=== PATIENT | male | born 1935 ===

== ENCOUNTER 2020-07-20 23:56 | Inpatient (IN) ==
[2020-07-21] MEDS ORDERED: MAGNESIUM SULFATE 2 GM/50 ML BAG IV ONE (00:37)
--- NOTE | 2020-07-21 00:58 | Emergency Department Note ---
Lower Extremity Injury HPI General Chief Complaint: Extremity Injury, Lower Stated Complaint: right hip fracture Time Seen by Provider: 07/21/20 00:13 Source: EMS Mode of arrival: EMS Limitations: no limitations History of Present Illness HPI Narrative: Narrative: 85-year-old male initially seen at [facility] for right hip fracture. The ER doctor there, Dr. Baig, discussed the situation with orthopedist communications billing analyst Dr. Amaya who agreed to accept the patient for repair here. However the patient would have to go through the ER to the hospitalist with consult to orthopedist. Due to logistics of transport patient arrived after midnight. His pain is controlled and he is otherwise doing okay if he does not move his right hip It sounds like he was outside and fell when it happened. When he got up he could not bear weight on his right leg Related Data Allergies Allergy/AdvReac Type Severity Reaction Status Date / Time meperidine [From Demerol] Allergy Severe Chest Pain Verified 07/20/20 23:58 Review of Systems ROS ROS Narrative: Narrative: Denies any significant pain fever or recent illness. All systems ED: reviewed and negative except as stated. [facility] Narrative Patient History Narrative: Narrative: Medical/Surgical/Family History All Active Problems Hyperlipidemia (Acute) Coronary artery disease (Acute) Hypertension (Acute) Closed hip fracture (Acute) Ventricular trigeminy (Acute) Surgical History H/O heart artery stent (Acute) H/O left nephrectomy (Acute) History of left hip replacement (Acute) History of repair of rotator cuff (Acute) Family History (Updated 07/21/20 @ 01:48 by Darian Bowling MD) Father Lung cancer Social History Smoking Status: Never smoker Exam Narrative Narrative: Narrative: Thin male no acute distress resting. Normocephalic atraumatic. Conjunctive are clear sclerae white nonicteric. No nasal discharge or congestion. Oropharynx pink and moist. Neck supple.lymphadenopathy thyromegaly. Heart is regular rate and rhythm no murmur appreciated. Pectus excavatum. Lungs clear to auscultation bilaterally without wheezes rales rhonchi or respiratory distress. Abdomen soft nontender nondistended. No peritoneal signs or guarding. No pedal edema. Right foot is rotated out in clearly shorter than the left. He does have some pain at the right hip with motion-mildly tender in the hip area. General Limitations: no limitations Course Vital Signs Vital signs: Vital Signs Temperature 98.4 F 07/20/20 23:59 Pulse Rate 105 H 07/20/20 23:59 Respiratory Rate 17 07/20/20 23:59 Blood Pressure 150/97 07/20/20 23:59 Pulse Oximetry (%) 96 07/20/20 23:59 Temperature 98.4 F 07/20/20 23:59 Pulse Rate 100 H 07/21/20 00:38 Respiratory Rate 21 07/21/20 00:38 Blood Pressure 141/72 07/21/20 00:32 Pulse Oximetry (%) 93 07/21/20 00:38 MDM MDM Narrative Medical decision making narrative: Narrative: Got report from Dr. Koo, our hospitalist. He asked me to write transition orders. Also reviewed records from [facility]-laboratory does not show remarkable findings. Wrote orders after brief interview and exam of the patient Declines pain medicine. Patient will be admitted to Dr. Koo with consult to Dr. Amaya EKG shows ventricular trigeminy. Ordered mag rider 2 g. EKG Data EKG #1: EKG attestation: Yes I reviewed and interpreted this EKG. EKG results narrative: EKG shows ventricular trigeminy. Heart rate of around 100 Discharge Plan Patient/Caregiver Discharge Instructions Pt seen by [facility] only: No Clinical Impression: Ventricular trigeminy Closed hip fracture Qualifiers: Encounter type: subsequent encounter Laterality: right Fracture healing: with nonunion Qualified Code(s): S72.001K - Fracture of unspecified part of neck of right femur, subsequent encounter for closed fracture with nonunion Patient Disposition: Xfer As Inpt ([facility]) Condition: Fair Follow up with: [facility] [Primary Care Provider] -
[2020-07-21] MEDS ORDERED: morphine 2 MG/ML VIAL IV PRN (01:37)
[2020-07-21] MEDS ORDERED: NALOXONE HCL 0.4 MG/ML VIAL IV PRN ×2 (01:37→18:08)
[2020-07-21] MEDS ORDERED: ONDANSETRON 4 MG/2 ML VIAL IV PRN ×6 (01:37→18:43)
[2020-07-21] MEDS: 0.9 % SODIUM CHLORIDE 1,000 ML IV SCH ×2 (03:10→23:20)
[2020-07-21] MEDS ORDERED: BISACODYL 10 MG SUPP.RECT PR PRN ×2 (07:45→18:43)
[2020-07-21] MEDS ORDERED: guaiFENesin/CODEINE 10 ML UDC PO PRN (07:45)
[2020-07-21] MEDS ORDERED: MAGNESIUM SULFATE 2 GM/50 ML BAG IV PRN (07:45)
[2020-07-21] MEDS ORDERED: POTASSIUM CHLORIDE 20 MEQ PACKET PO PRN (07:45)
[2020-07-21] MEDS ORDERED: MELATONIN 3 MG TABLET PO PRN (07:45)
[2020-07-21] MEDS ORDERED: HYDROmorphone 0.5 MG/0.5 ML SYRINGE IV PRN (07:45)
[2020-07-21] MEDS ORDERED: ACETAMINOPHEN 650 MG/65 ML BOTTLE IV PRN (07:45)
[2020-07-21] MEDS ORDERED: ONDANSETRON 4 MG ODT TABLET SL PRN ×2 (07:45→18:43)
[2020-07-21] MEDS ORDERED: POLYETHYLENE GLYCOL 3350 17 GM PACKET PO PRN ×2 (07:45→18:43)
--- NOTE | 2020-07-21 07:47 | Internal Med History&Physical ---
HPI History of Present Illness Patient information: Note initiated : 07/21/20 at 7:44 am Service Date, if different from initiated Date: [] Patient: Bryce Gandhi 85 y/o M admitted on 07/21/20 for right hip fracture. Chief Complaint: fall History of present illness: Mr. Gandhi is a 85 year old M who presents to the ER from [facility] following a fall that resulted in right hip fracture. Dr. Mckeon was consulted and requested patient to be transferred to [facility] for further management/operative intervention. I received a phone call from Dr. Turcios about patient's status and the need for transfer to [facility]. Patient accepted and arrived in the ER. Patient is fairly stable Patient denies lightheadedness dizziness. 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 He came home and sat on the stairs, he attributes fall getting off balance while he was getting off on the stairs and turning around. He denies chest pain, palpitation, lightheadedness, thunderclap headache, unilateral weakness or incontinence. Review of patient prior medical history includes hypertension/coronary disease/hyperlipidemia with a recent hospitalization or decompensations. He is a fairly active 85-year-old gentleman Review of systems 10 point review system was performed and is negative except for ones discussed above PFSH PFSH All Active Problems Hyperlipidemia (Acute) Coronary artery disease (Acute) Hypertension (Acute) Closed hip fracture (Acute) Ventricular trigeminy (Acute) Surgical History H/O heart artery stent (Acute) H/O left nephrectomy (Acute) History of left hip replacement (Acute) History of repair of rotator cuff (Acute) Family History (Updated 07/21/20 @ 01:48 by Darian Bowling MD) Father Lung cancer Social History smoking status: Never smoker MEDS/ALLERGIES Home Medications and Allergies Home Medications Medication Instructions Recorded Confirmed Type aspirin [Aspirin Low Dose] 81 mg PO DAILY 07/21/20 07/21/20 History carvedilol 3.125 mg PO BID 07/21/20 07/21/20 History cholecalciferol (vitamin D3) 25 mcg PO QDAY 07/21/20 07/21/20 History nitroglycerin 0.4 mg SUBLINGUAL Q5MIN 07/21/20 07/21/20 History simvastatin [Zocor] 40 mg PO QHS 07/21/20 07/21/20 History Allergies Allergy/AdvReac Type Severity Reaction Status Date / Time Hydralazine Allergy Unknown Unknown Verified 07/21/20 06:45 meperidine [From Demerol] AdvReac Severe Chest Pain Verified 07/21/20 06:45 EXAM Constitutional Vitals: Temp Pulse Resp BP Pulse Ox 98.0 F 97 H 16 139/75 97 07/21/20 07:08 07/21/20 07:08 07/21/20 07:08 07/21/20 07:08 07/21/20 07:08 Head normocephalic Oral cavity moist No ear nose discharge Eye movement symmetrical Neck supple no lymphadenopathy S1-S2 regular, ESM grade 1 Nonlabored breathing Nondistended nontender abdomen Right lower extremity externally rotated and shortened, pain on passive movement at hip. , No lymphedema joint swelling Skin no suspicious lesion Psych anxious but alert cooperative Neuro normal higher function DATA Data Completed and Pending Labs: Labs from last 24 hours 07/21/20 03:55 SARS-CoV-2 (PCR) Covid-19 negative A/P Narrative A/P Narrative: * Right hip fracture-orthopedic consulted. Patient will be undergoing operative intervention in a.m. Keep n.p.o./pain medication/crystalloids * Postop pain management on opioids * History of hypertension restart Coreg * History of CAD/hyperlipidemia continue statin/aspirin * Full code * Prophylaxis will be as per orthopedics Plan * Inpatient admission * Keep n.p.o. * Restart pre-existing home medications * Pain management * Directed therapies Time Spent With Patient Time: Total time spent is greater than 50% in coordination of care (as documented) at patient's floor/unit and/or counseling patient: QUALITY Stroke Symptom Onset Unknown: No VTE Deep Vein Thrombosis/Pulmonary Embolism Present on Admission: No
[2020-07-21] MEDS ORDERED: NITROGLYCERIN 0.4 MG TAB.SUBL SL SCH (08:00)
[2020-07-21] MEDS: CARVEDILOL 3.125 MG TABLET PO SCH (08:26)
[2020-07-21 08:44] LABS: Basophils # (Auto) 0.03 K/mcL (0.00-0.30); Basophils % (Auto) 0.3 % (0.0-2.0); Eosinophils # (Auto) 0.17 K/mcL (0.00-0.70); Eosinophils % (Auto) 1.9 % (0.0-7.0); Hematocrit 40.1 % (40.1-51.0); Hemoglobin 13.4 g/dL (13.7-17.5); Lymphocytes # (Auto) 0.84 K/mcL (1.50-4.80); Lymphocytes % (Auto) 9.2 % (15.5-49.0); Mean Cell Volume 96.6 fL (80.0-100.0); Mean Corpuscular HGB Conc 33.4 g/dL (31.0-36.0); Mean Platelet Volume 8.8 fL (7.4-10.4); Monocytes # (Auto) 0.69 K/mcL (0.10-0.90); Monocytes % (Auto) 7.6 % (1.0-12.0); Platelet Count 199 K/mcL (140-440); RBC 4.15 M/mcL (4.63-6.08); Red Cell Distribution Width 13.1 % (11.5-14.5); WBC 9.1 K/mcL (4.50-11.00)
[2020-07-21] MEDS ORDERED: ASPIRIN 81 MG TAB.CHEW PO SCH (09:00)
[2020-07-21 09:08] LABS: ALT/SGPT 11 U/l (0-40); AST/SGOT 14 U/l (0-37); Albumin 3.5 gm/dL (3.2-5.2); Albumin/Globulin Ratio 1.4 (1.0-2.3); Alkaline Phosphatase 102 U/L (39-117); Bilirubin,Direct < 0.2 mg/dL (0.0-0.3); Bilirubin,Total 0.5 mg/dL (0.0-1.0); Blood Urea Nitrogen 17 mg/dl (8-23); Calcium 8.7 mg/dl (8.6-10.4); Carbon Dioxide 22 mmol/L (22-30); Chloride 101 mmol/L (96-108); Globulin 2.5 gm/dL (2.2-3.7); Glomerular Filtration Rate 69; Glucose 100 mg/dL (70-105); Lactate Dehydrogenase 175 U/L (94-250); Phosphorous 2.6 mg/dL (2.7-4.5); Triglycerides 63 mg/dl (<150); Uric Acid 5.3 mg/dL (2.5-8.0)
[2020-07-21] MEDS ORDERED: ceFAZolin 2 GM in DEXTROSE 5% IN WATER 50 ML IV SCH (11:30)
--- NOTE | 2020-07-21 12:07 | Consultation ---
DATE OF CONSULTATION: 07/21/2020 DATE OF INJURY: 07/20/2020 HISTORY OF PRESENT ILLNESS: A very pleasant elderly male who had a same level fall, had immediate pain and swelling in his right hip. He was seen in the Emergency Room in [place] and diagnosed with femoral neck fracture. He was transferred to [facility] Emergency Room where he was admitted to the hospital. The patient has been fairly healthy, takes no regular medication. He has been independently living and able to chop wood. PAST MEDICAL HISTORY: Healthy. No chest pain, no shortness of breath, no loss of consciousness. SOCIAL HISTORY: He does not smoke or drink alcohol. MEDICATIONS: No regular medications. ALLERGIES: None. PHYSICAL EXAMINATION: GENERAL: Very pleasant elderly male who is alert and oriented x3. Mood and affect are appropriate. He is 85 years of age. LUNGS: Clear to auscultation bilaterally. CARDIOVASCULAR: Regular rate and rhythm. No murmurs, rubs or gallops. EXTREMITIES: His right leg is shortened and externally rotated, but he is able to move the foot up and down without pain. He has normal light touch sensation of the dorsal and plantar surface with normal dorsal and pedal pulses. The hip is externally rotated and shortened. IMPRESSION: Right hip femoral neck fracture. PLAN: Treatment will be a cemented hemiarthroplasty on the right side. Patient understands the risks and benefits and agrees to proceed. He has had a prior hemiarthroplasty in the past. [facility]:sharyn Job ID: [id number] Doc ID: [id number] Vikas Amaya MD
[2020-07-21 12:26] LABS: Appearance,Urine CLEAR; Bacteria,Urine FEW /hpf (0); Bilirubin,Urine NEG (NEG); Color,Urine YELLOW; Culture Indicated,Urine YES; Glucose,Urine (UA) NEGATIVE (NEG); Ketones,Urine 5/TR mg/dL (NEG); Leukocyte Esterase,Urine 25 /uL (NEG); Mucus,Urine FEW /hpf (0); Nitrate,Urine NEG (NEG); Protein,Urine NEG (NEG); Specific Gravity,Urine 1.013 (1.000-1.035); Urine Blood 0.2 mg/dL (<0.03); Urine RBC 26 /hpf (0-1); Urine Squamous Epithelial Cell 0 /hpf (0-4); Urine WBC 7 /hpf (0-4); Urobilinogen,Urine NEG (NEG)
[2020-07-21] MEDS: MULTIVIT,THER IRON,CA,FA & MIN 1 TABLET PO SCH (15:23)
[2020-07-21] MEDS: DOCUSATE SODIUM 100 MG CAPSULE PO SCH ×2 (15:23→23:19)
[2020-07-21] MEDS: 0.9 % SODIUM CHLORIDE 10 ML SYRINGE IV SCH ×3 (15:25→23:20)
[2020-07-21] MEDS ORDERED: ONDANSETRON 4 MG/2 ML VIAL ONE (17:30)
[2020-07-21] MEDS ORDERED: DEXAMETHASONE 10 MG/ML VIAL ONE (17:30)
[2020-07-21] MEDS ORDERED: SUCCINYLCHOLINE 20 MG/ML ML IV ONE (17:30)
[2020-07-21] MEDS ORDERED: PROPOFOL 200 MG/20 ML VIAL IV ONE (17:30)
[2020-07-21] MEDS ORDERED: PHENYLEPHRINE 10 MG/ML VIAL ONE (17:30)
[2020-07-21] MEDS ORDERED: LIDOCAINE HCL/PF 100 MG/5 ML SYRINGE IV ONE (17:30)
[2020-07-21] MEDS ORDERED: 0.9 % SODIUM CHLORIDE 1,000 ML BAG IV ONE (17:30)
[2020-07-21] MEDS ORDERED: KETAMINE 100 MG/ML ML ONE (17:30)
[2020-07-21] MEDS ORDERED: fentaNYL 100 MCG/2 ML VIAL IV ONE (17:30)
[2020-07-21] MEDS ORDERED: IPRATROPIUM/ALBUTEROL 3 ML AMPUL.NEB NEB PRN (18:08)
[2020-07-21] MEDS ORDERED: METOPROLOL TARTRATE 5 MG/5 ML VIAL IV PRN (18:08)
[2020-07-21] MEDS ORDERED: diphenhydrAMINE 50 MG/ML VIAL IV PRN (18:08)
[2020-07-21] MEDS ORDERED: ACETAMINOPHEN 1,000 MG/100 ML BOTTLE IV ONE (18:08)
[2020-07-21] MEDS ORDERED: ATROPINE SULFATE 0.4 MG/ML VIAL IV PRN (18:08)
[2020-07-21] MEDS ORDERED: fentaNYL 100 MCG/2 ML VIAL IV PRN (18:08)
[2020-07-21] MEDS ORDERED: ePHEDrine 50 MG/ML AMPUL IV PRN (18:08)
[2020-07-21] MEDS ORDERED: METHOCARBAMOL 1,000 MG/10 ML VIAL IV PRN (18:08)
[2020-07-21] MEDS ORDERED: LACTATED RINGERS 1,000 ML IV SCH (18:15)
[2020-07-21] MEDS ORDERED: GENTAMICIN SULFATE 800 MG/20 ML VIAL IR ONE (18:25)
--- NOTE | 2020-07-21 18:40 | Brief Operative Note ---
Brief Operative Note Date of procedure: 07/21/20 Pre-op diagnosis: Right hip femoral neck fracature Post-op diagnosis: same Procedure: Right hip cemented leslie arthroplasty Grafts/Implants: Yes Anesthesia: GETA Complications: none Surgeon: Vikas Amaya Videotape Operator: Victor M Williamson Estimated blood loss (cc): 20 Tourniquet Time (Minutes): 0 Specimens Removed/Pathology: none sent Condition: stable Disposition: PACU
[2020-07-21] MEDS ORDERED: BENZOCAINE/MENTHOL 1 LOZENGE PO PRN (18:43)
[2020-07-21] MEDS ORDERED: TRANEXAMIC ACID 1,000 MG/10 ML VIAL IV ONE ×2 (18:43→19:36)
[2020-07-21] MEDS ORDERED: HYDROmorphone 1 MG/ML SYRINGE IV PRN (18:43)
[2020-07-21] MEDS ORDERED: MAGNESIUM HYDROXIDE 30 ML ORAL.SUSP PO PRN (18:43)
[2020-07-21] MEDS ORDERED: ACETAMINOPHEN 325 MG TABLET PO PRN (18:43)
[2020-07-21] MEDS ORDERED: HYDROCODONE/APAP 7.5/325MG TABLET PO PRN (18:43)
[2020-07-21] MEDS ORDERED: FLEETS ADULT ENEMA PR PRN (18:43)
[2020-07-21] MEDS ORDERED: TEMAZEPAM 15 MG CAPSULE PO PRN (18:43)
[2020-07-21] MEDS ORDERED: ASPIRIN 325 MG ENTERIC COATED TABLET PO SCH (21:00)
[2020-07-21] MEDS ORDERED: DOCUSATE SODIUM 100 MG CAPSULE PO SCH (21:00)
[2020-07-21] MEDS: LACTATED RINGERS 1,000 ML IV SCH (21:00)
[2020-07-21] MEDS: ASPIRIN 81 MG TAB.CHEW PO SCH (23:17)
[2020-07-21] MEDS: SIMVASTATIN 40 MG TABLET PO SCH (23:17)
[2020-07-21] MEDS: SENNOSIDES 1 TABLET PO SCH (23:19)
[2020-07-21] MEDS: SENNOSIDES/DOCUSATE SODIUM 1 TAB TABLET PO SCH (23:19)
[2020-07-22] MEDS: CARVEDILOL 3.125 MG TABLET PO SCH ×3 (01:21→17:54)
[2020-07-22] MEDS: ceFAZolin 1 GM VIAL IV SCH ×2 (02:53→11:22)
[2020-07-22] MEDS: LACTATED RINGERS 1,000 ML IV SCH ×2 (02:54→22:22)
[2020-07-22] MEDS: 0.9 % SODIUM CHLORIDE 10 ML SYRINGE IV SCH ×6 (04:20→22:21)
[2020-07-22] MEDS: ASPIRIN 81 MG TAB.CHEW PO SCH ×2 (08:11→20:46)
[2020-07-22] MEDS: DOCUSATE SODIUM 100 MG CAPSULE PO SCH ×2 (08:12→22:19)
[2020-07-22] MEDS: MULTIVIT,THER IRON,CA,FA & MIN 1 TABLET PO SCH (08:12)
[2020-07-22 08:57] LABS: Hematocrit 36.6 % (40.1-51.0); Hemoglobin 11.6 g/dL (13.7-17.5); Mean Corpuscular HGB Conc 31.7 g/dL (31.0-36.0); Mean Platelet Volume 9.6 fL (7.4-10.4); Platelet Count 229 K/mcL (140-440); RBC 3.66 M/mcL (4.63-6.08); Red Cell Distribution Width 13.4 % (11.5-14.5); WBC 11.7 K/mcL (4.50-11.00)
--- NOTE | 2020-07-22 10:23 | Orthopedic Progress Note ---
SUBJECTIVE Subjective Patient information: Note initiated : 07/22/20 at 10:20 am Service Date, if different from initiated Date: [] Patient: Bryce Gandhi 85 y/o M admitted on 07/21/20 for right hip fracture. He is POD#1 right leslie hip arthroplasty with Dr. Amaya. Overall doing well this am. Admits to pain in the hip but states it is managed. Denies SOB, CP, N/V, fevers/chills. Has been up ambulating. No new complaints this AM. Chief Complaint: right hip pain. Constitutional Vitals: Vital Signs Temp Pulse Resp BP Pulse Ox 99.1 F H 104 H 16 111/67 96 07/22/20 07:06 07/22/20 07:06 07/22/20 07:06 07/22/20 07:06 07/22/20 07:06 Period Temp Pulse Resp BP Sys/Engle Pulse Ox Last 24 Hr 97.1 F-99.1 F 51-104 12-18 108-164/56-98 92-100 Intake and Output 07/21/20 07/22/20 07/22/20 21:59 05:59 13:59 Intake Total 2210 240 1000 Output Total 600 600 Balance 1610 -360 1000 Weight 122 lb 14 oz Intake & Output: Intake & Output 07/21/20 07/22/20 07/22/20 21:59 05:59 13:59 Intake Total 2210 240 1000 Output Total 600 600 Balance 1610 -360 1000 Weight 122 lb 14 oz Intake: IV 810 0 1000 Sodium Chloride 0.9% 1,000 ml @ 702 50 mls/hr IV .Q20H [facility] Rx#: [id number] Lactated Ringers 1,000 ml @ 100 8 0 1000 mls/hr IV .Q10H [facility] Rx#: [id number] Oral 240 IV - Manual Only 1400 Output: Urine Catheter Amount 400 600 Estimated Blood Loss 200 Other: Meal snack Percent of Meal Consumed 100% Urine Appearance Clear Clear Uretheral (Capellan) Clear Clear Urine Color Pale Bright Yellow Dark Yellow Uretheral ([place]) Pale Pale Urine Odor Normal Normal Exam: Alert, oriented x 3. No acute distress. Extremities Exam Extremities exam: Present normal capillary refill, normal inspection, Foot pink and warm and neurovascular intact; Absent calf tenderness and Marj's sign Additional comments: silver dressing in place over right hip. It is clean, dry, intact. Full ROM at foot/ankles. No pain with passive calf stretch. OBJ DATA Labs CBC & Chem 7: 07/22/20 06:10 07/22/20 06:10 Labs: Abnormal Lab Results 07/22/20 07/21/20 07/21/20 06:10 10:55 08:05 WBC 11.7 H RBC 3.66 L Hgb 11.6 L Hct 36.6 L Gran % Lymph % (Auto) Lymph # (Auto) Phosphorus 2.6 L Magnesium 2.6 H Urine Ketones 5/tr A Urine Occult Blood 0.2 A Ur Leukocyte Esterase 25 A Urine RBC 26 H Urine WBC 7 H Urine Bacteria Few A 07/21/20 08:05 WBC RBC 4.15 L Hgb 13.4 L Hct Gran % 81.0 H Lymph % (Auto) 9.2 L Lymph # (Auto) 0.84 L Phosphorus Magnesium Urine Ketones Urine Occult Blood Ur Leukocyte Esterase Urine RBC Urine WBC Urine Bacteria Meds: Medications Acetaminophen (Tylenol) 650 mg PO Q4-6HP PRN; Protocol PRN Reason: Per Pain Protocol/Fever > 101 Hydrocodone Bitart/Acetaminophen ([place] 7.5/325mg) 1 - 2 tab PO Q4HP PRN; Protocol PRN Reason: Per Pain Protocol Aspirin (Aspirin) 81 mg PO BID [facility] Last Admin: 07/22/20 08:11 Dose: 81 mg Documented by: Bisacodyl (Dulcolax) 10 mg DE Q2-3DAYS PRN PRN Reason: Constipation [facility] Last Admin: 07/22/20 08:11 Dose: 3.125 mg Documented by: Cefazolin Sodium (Ancef) 2 gm IV Q8H [facility]; Protocol Stop: 07/22/20 11:01 Last Admin: 07/22/20 02:53 Dose: 2 gm Documented by: Docusate Sodium (Colace) 100 mg PO BID [facility] Last Admin: 07/22/20 08:12 Dose: Not Given Documented by: Guaifenesin/Codeine Phosphate (Robitussin Ac) 10 ml PO Q4HP PRN PRN Reason: Cough Hydromorphone HCl (Dilaudid) 0 mg IV Q2HP PRN; Protocol PRN Reason: Per Pain Protocol Sodium Chloride (Sodium Chloride 0.9%) 1,000 mls @ 50 mls/hr IV .Q20H [facility] Last Admin: 07/21/20 23:20 Dose: Not Given Documented by: Acetaminophen (Ofirmev) 650 mg in 65 mls @ 130 mls/hr IV Q6HP PRN; Protocol PRN Reason: Per Pain Protocol/Fever > 101 Magnesium Sulfate (Magnesium Sulfate) 2 gm in 50 mls @ 50 mls/hr IV UD PRN PRN Reason: MG = or < 1.7 Lactated Ringer's (Lactated Ringers) 1,000 mls @ 100 mls/hr IV .Q10H [facility] Last Infusion: 07/22/20 08:35 Dose: Infused Documented by: Iron Carb/Multivit/[place]/Folic Acid (Multivitamin W/Minerals) 1 tab PO DAILY [facility] Last Admin: 07/22/20 08:12 Dose: Not Given Documented by: Ketorolac Tromethamine (Toradol) 15 mg IV Q6HP PRN; Protocol PRN Reason: Per Pain Protocol Stop: 07/23/20 18:45 Magnesium Hydroxide (Milk Of Magnesia) 30 ml PO BIDP PRN PRN Reason: Constipation Naloxone HCl (Narcan) 0.1 mg IV Q2MIN PRN PRN Reason: Opiate Reversal Nitroglycerin (Nitrostat) 0.4 mg SL Q5MIN [facility] Ondansetron HCl (Zofran) 4 mg IV Q4HP PRN PRN Reason: Nausea And Vomiting Ondansetron HCl (Zofran Odt) 4 mg SL Q4-6HP PRN; Protocol PRN Reason: Nausea And Vomiting Polyethylene Glycol (Miralax) 17 gm PO DAILYP PRN PRN Reason: Constipation Potassium Chloride (Klor-Con) 40 meq PO DAILYP PRN PRN Reason: K+ < 3.5 Senna (Senokot) 1 tab PO [facility] Last Admin: 07/21/20 23:19 Dose: Not Given Documented by: Senna/Docusate Sodium (Senna Plus Tablet) 1 tab PO [facility] Last Admin: 07/21/20 23:19 Dose: Not Given Documented by: Simvastatin (Zocor) 40 mg PO QHS [facility] Last Admin: 07/21/20 23:17 Dose: 40 mg Documented by: Sodium Biphosphate/Sodium Phosphate (Fleets Adult) 1 dose DE Q3-4DAYS PRN PRN Reason: Constipation Sodium Chloride (Saline Flush) 10 ml IV Q8 [facility] Last Admin: 07/22/20 04:20 Dose: Not Given Documented by: Sodium Chloride (Saline Flush) 10 ml IV Q8 [facility] Last Admin: 07/22/20 04:20 Dose: Not Given Documented by: Temazepam (Restoril) 15 mg PO HSP PRN PRN Reason: Insomnia Throat Lozenges (Cepacol) 1 lozenge PO PRN PRN PRN Reason: Sore Throat A/P Assessment and plan (1) Closed hip fracture: Status: Acute Comment: Pt is an 85 yo male POD#1 s/p right leslie hip arthroplasty. --PT/OT: WBAT with right lower extremity. --continue pain medications. --continue diet. --prophy: aspirin, SCDs, IS. --dispo: home likely w or Friday depending on PT assessment--pt lives by himself. Qualifiers: Encounter type: subsequent encounter Fracture healing: with nonunion Laterality: right Qualified Code(s): S72.001K - Fracture of unspecified part of neck of right femur, subsequent encounter for closed fracture with nonunion
[2020-07-22 12:45] LABS: Band Neutrophils % 4 % (0-10); Lymphocytes % 7 % (15-49); Monocytes % (Manual) 3 % (1-12); Platelet Estimate NORMAL (NORMAL); RBC Morphology NORMAL (NORMAL); Segmented Neutrophils % 86 % (38-78)
[2020-07-22] MEDS: KETOROLAC 15 MG/ML VIAL IV PRN ×2 (14:02→20:45)
--- NOTE | 2020-07-22 19:00 | Internal Med Progress Note ---
SUBJECTIVE Subjective Patient information: Note initiated : 07/22/20 at 6:54 pm Service Date, if different from initiated Date: [] Patient: Bryce Gandhi a 85 y/o M admitted on 07/21/20 for right hip fracture. Chief Complaint: [] Mr. Gandhi is a 85 year old M who presents to the ER from [facility] following a fall that resulted in right hip fracture. Dr. Mckeon was consulted and requested patient to be transferred to [facility] for further management/operative intervention. I received a phone call from Dr. Turcios about patient's status and the need for transfer to [facility]. Patient accepted and arrived in the ER. Patient is fairly stable Patient denies lightheadedness dizziness. 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 He came home and sat on the stairs, he attributes fall getting off balance while he was getting off on the stairs and turning around. He denies chest pain, palpitation, lightheadedness, thunderclap headache, unilateral weakness or incontinence. Review of patient prior medical history includes hypertension/coronary disease/hyperlipidemia with a recent hospitalization or decompensations. He is a fairly active 85-year-old gentleman 07/22 Patient has mild pain from right fracture area. Denies fever, chills, nausea or vomiting. Right hip cemented leslie arthroplasty was performed by Dr. Amaya on 07/21/20. PT OT ROS: Positive for right hip pain. All other systems were reviewed and negative. Constitutional Vitals: Vital Signs Temp Pulse Resp BP Pulse Ox 99.5 F H 74 16 102/54 93 07/22/20 16:00 07/22/20 16:00 07/22/20 16:00 07/22/20 16:00 07/22/20 16:00 Period Temp Pulse Resp BP Sys/Engle Pulse Ox Last 24 Hr 97.1 F-99.5 F 73-104 -18 102-164/54-98 92-100 Intake and Output 07/22/20 07/22/20 07/22/20 05:59 13:59 21:59 Intake Total 240 1000 240 Output Total 600 Balance -360 1000 240 Weight 55.735 kg Patient Weight 07/23/20 05:59 Weight 55.735 kg Intake & Output: Intake & Output 07/22/20 07/22/20 07/22/20 05:59 13:59 21:59 Intake Total 240 1000 240 Output Total 600 Balance -360 1000 240 Weight 55.735 kg Intake: IV 0 1000 Lactated Ringers 1,000 ml @ 100 0 1000 mls/hr IV .Q10H [facility] Rx#: [id number] Oral 240 Tube Feeding 240 Output: Urine Catheter Amount 600 Other: Meal snack Dinner Percent of Meal Consumed 100% 100% Feeding Ability Independent Urine Appearance Clear Uretheral (Capellan) Clear Urine Color Bright Yellow Dark Yellow Uretheral (Capellan) Pale Urine Odor Normal Additional findings Additional findings: General - No acute distress Eyes - PERRLA, EOM intact ENT no rhinorrhea, no noticeable or palpable swelling, no redness or rash around throat or on face Neck supple, no JVD, no thyromegaly Respiratory: Lungs - diminshed BS, no use of accessary muscles. Cardiovascular - RRR no m/r/g, GI - Normal bowel sounds, no distended, soft. Extremeties -present on right hip dry Hemo/lymphatic/immune no lymphadenopathy Neurological Alert and oriented x 3, no focal neurological deficits. Psychiatry flat affect OBJ DATA Labs CBC & Chem 7: 07/22/20 06:10 07/22/20 06:10 Labs: Abnormal Lab Results 07/22/20 07/21/20 07/21/20 06:10 10:55 08:05 WBC 11.7 H RBC 3.66 L Hgb 11.6 L Hct 36.6 L Gran % Lymph % (Auto) Lymph # (Auto) Seg Neutrophils % 86 H Lymphocytes % 7 L Phosphorus 2.6 L Magnesium 2.6 H Urine Ketones 5/tr A Urine Occult Blood 0.2 A Ur Leukocyte Esterase 25 A Urine RBC 26 H Urine WBC 7 H Urine Bacteria Few A 07/21/20 08:05 WBC RBC 4.15 L Hgb 13.4 L Hct Gran % 81.0 H Lymph % (Auto) 9.2 L Lymph # (Auto) 0.84 L Seg Neutrophils % Lymphocytes % Phosphorus Magnesium Urine Ketones Urine Occult Blood Ur Leukocyte Esterase Urine RBC Urine WBC Urine Bacteria Meds: Medications Acetaminophen (Tylenol) 650 mg PO Q4-6HP PRN; Protocol PRN Reason: Per Pain Protocol/Fever > 101 Hydrocodone Bitart/Acetaminophen ([place] 7.5/325mg) 1 - 2 tab PO Q4HP PRN; Pro tocol PRN Reason: Per Pain Protocol Aspirin (Aspirin) 81 mg PO BID [facility] Last Admin: 07/22/20 08:11 Dose: 81 mg Documented by: Bisacodyl (Dulcolax) 10 mg RI Q2-3DAYS PRN PRN Reason: Constipation [facility] Last Admin: 07/22/20 17:54 Dose: 3.125 mg Documented by: Docusate Sodium (Colace) 100 mg PO BID [facility] Last Admin: 07/22/20 08:12 Dose: Not Given Documented by: Guaifenesin/Codeine Phosphate (Robitussin Ac) 10 ml PO Q4HP PRN PRN Reason: Cough Hydromorphone HCl (Dilaudid) 0 mg IV Q2HP PRN; Protocol PRN Reason: Per Pain Protocol Sodium Chloride (Sodium Chloride 0.9%) 1,000 mls @ 50 mls/hr IV .Q20H [facility] Last Admin: 07/21/20 23:20 Dose: Not Given Documented by: Acetaminophen (Ofirmev) 650 mg in 65 mls @ 130 mls/hr IV Q6HP PRN; Protocol PRN Reason: Per Pain Protocol/Fever > 101 Magnesium Sulfate (Magnesium Sulfate) 2 gm in 50 mls @ 50 mls/hr IV UD PRN PRN Reason: MG = or < 1.7 Lactated Ringer's (Lactated Ringers) 1,000 mls @ 100 mls/hr IV .Q10H [facility] Last Infusion: 07/22/20 08:35 Dose: Infused Documented by: Iron Carb/Multivit/[place]/Folic Acid (Multivitamin W/Minerals) 1 tab PO DAILY [facility] Last Admin: 07/22/20 08:12 Dose: Not Given Documented by: Ketorolac Tromethamine (Toradol) 15 mg IV Q6HP PRN; Protocol PRN Reason: Per Pain Protocol Stop: 07/23/20 18:45 Last Admin: 07/22/20 14:02 Dose: 15 mg Documented by: Magnesium Hydroxide (Milk Of Magnesia) 30 ml PO BIDP PRN PRN Reason: Constipation Naloxone HCl (Narcan) 0.1 mg IV Q2MIN PRN PRN Reason: Opiate Reversal Nitroglycerin (Nitrostat) 0.4 mg SL Q5MIN [facility] Ondansetron HCl (Zofran) 4 mg IV Q4HP PRN PRN Reason: Nausea And Vomiting Ondansetron HCl (Zofran Odt) 4 mg SL Q4-6HP PRN; Protocol PRN Reason: Nausea And Vomiting Polyethylene Glycol (Miralax) 17 gm PO DAILYP PRN PRN Reason: Constipation Potassium Chloride (Klor-Con) 40 meq PO DAILYP PRN PRN Reason: K+ < 3.5 Senna (Senokot) 1 tab PO [facility] Last Admin: 07/21/20 23:19 Dose: Not Given Documented by: Senna/Docusate Sodium (Senna Plus Tablet) 1 tab PO [facility] Last Admin: 07/21/20 23:19 Dose: Not Given Documented by: Simvastatin (Zocor) 40 mg PO QHS [facility] Last Admin: 07/21/20 23:17 Dose: 40 mg Documented by: Sodium Biphosphate/Sodium Phosphate (Fleets Adult) 1 dose RI Q3-4DAYS PRN PRN Reason: Constipation Sodium Chloride (Saline Flush) 10 ml IV Q8 [facility] Last Admin: 07/22/20 14:02 Dose: 10 ml Documented by: Sodium Chloride (Saline Flush) 10 ml IV Q8 [facility] Last Admin: 07/22/20 14:03 Dose: 10 ml Documented by: Temazepam (Restoril) 15 mg PO HSP PRN PRN Reason: Insomnia Throat Lozenges (Cepacol) 1 lozenge PO PRN PRN PRN Reason: Sore Throat A/P Narrative A/P Narrative: 1. Right hip fracture- s/p right hip cemented leslie arthroplasty was performed by Dr. Amaya on 07/21/20. Postop pain management on opioids 2. History of hypertension restart Coreg 3. History of CAD/hyperlipidemia continue statin/aspirin 4. Full code 5. Prophylaxis will be as per orthopedics Plan PT/OT/CM Restart pre-existing home medications Pain management Directed therapies Time Spent With Patient Time: Total time spent is greater than 50% in coordination of care (as documented) at patient's floor/unit and/or counseling patient: QUALITY Stroke Symptom Onset Unknown: No VTE Deep Vein Thrombosis/Pulmonary Embolism Present on Admission: No
[2020-07-22] MEDS: SIMVASTATIN 40 MG TABLET PO SCH (20:45)
[2020-07-22] MEDS: SENNOSIDES 1 TABLET PO SCH (22:20)
[2020-07-22] MEDS: SENNOSIDES/DOCUSATE SODIUM 1 TAB TABLET PO SCH (22:20)
[2020-07-22] MEDS: 0.9 % SODIUM CHLORIDE 1,000 ML IV SCH (22:23)
[2020-07-22] MEDS: ENOXAPARIN 40 MG/0.4 ML SYRINGE SQ SCH (22:32)
[2020-07-22] MEDS: PANTOPRAZOLE 40 MG TABLET PO SCH (22:32)
[2020-07-22] MEDS ORDERED: traMADol 50 MG TABLET PO PRN (22:56)
[2020-07-23] MEDS: LACTATED RINGERS 1,000 ML IV SCH ×2 (00:23→18:36)
[2020-07-23] MEDS: 0.9 % SODIUM CHLORIDE 10 ML SYRINGE IV SCH ×4 (05:17→14:18)
[2020-07-23 07:08] LABS: Hematocrit 36.1 % (40.1-51.0); Hemoglobin 11.8 g/dL (13.7-17.5); Mean Cell Volume 98.4 fL (80.0-100.0); Mean Corpuscular HGB Conc 32.7 g/dL (31.0-36.0); Mean Platelet Volume 9.7 fL (7.4-10.4); Platelet Count 192 K/mcL (140-440); RBC 3.67 M/mcL (4.63-6.08); Red Cell Distribution Width 13.3 % (11.5-14.5); WBC 10.4 K/mcL (4.50-11.00)
--- NOTE | 2020-07-23 07:35 | XRay Report ---
HISTORY: Postop right hip arthroplasty FINDINGS: There is a well-positioned newly inserted right total hip prosthesis. No fracture is present. There is an indwelling left hip prosthesis which is also well-positioned and there is no reabsorption of bone around the hardware. 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 IMPRESSION: Well-positioned right hip prosthesis Interpreted and Authenticated by: Viraj Ponce 07/23/20
[2020-07-23 08:27] LABS: Bilirubin,Direct < 0.2 mg/dL (0.0-0.3); Chloride 104 mmol/L (96-108)
[2020-07-23 08:42] LABS: ALT/SGPT 5 U/l (0-40); AST/SGOT 27 U/l (0-37); Albumin 3.1 gm/dL (3.2-5.2); Albumin/Globulin Ratio 1.1 (1.0-2.3); Alkaline Phosphatase 88 U/L (39-117); Bilirubin,Total 0.3 mg/dL (0.0-1.0); Blood Urea Nitrogen 36 mg/dl (8-23); Calcium 9.2 mg/dl (8.6-10.4); Carbon Dioxide 23 mmol/L (22-30); Globulin 2.9 gm/dL (2.2-3.7); Glomerular Filtration Rate 46; Glucose 96 mg/dL (70-105); Lactate Dehydrogenase 194 U/L (94-250); Phosphorous 2.6 mg/dL (2.7-4.5); Triglycerides 73 mg/dl (<150)
[2020-07-23] MEDS: KETOROLAC 15 MG/ML VIAL IV PRN (09:05)
[2020-07-23] MEDS: CARVEDILOL 3.125 MG TABLET PO SCH ×2 (09:06→16:43)
[2020-07-23] MEDS: MULTIVIT,THER IRON,CA,FA & MIN 1 TABLET PO SCH (09:07)
[2020-07-23] MEDS: ASPIRIN 81 MG TAB.CHEW PO SCH (09:07)
[2020-07-23] MEDS: DOCUSATE SODIUM 100 MG CAPSULE PO SCH (09:07)
[2020-07-23 09:28] LABS: Band Neutrophils % 1 % (0-10); Eosinophils % (Manual) 4 % (0-7); Lymphocytes % 11 % (15-49); Monocytes % (Manual) 6 % (1-12); Platelet Estimate NORMAL (NORMAL); RBC Morphology NORMAL (NORMAL); Segmented Neutrophils % 78 % (38-78)
--- NOTE | 2020-07-23 09:42 | Orthopedic Progress Note ---
SUBJECTIVE Subjective Patient information: Note initiated : 07/23/20 at 9:38 am Service Date, if different from initiated Date: [] Patient: Bryce Gandhi 85 y/o M admitted on 07/21/20 for right hip fracture. POD#2 s/p right leslie hip arthroplasty. Denies CP, SOB, N/V, fevers/chills. Admits to mild pain in the right hip but it is managed. Chief Complaint: right hip pain. Constitutional Vitals: Vital Signs Temp Pulse Resp BP Pulse Ox 98.3 F 81 16 127/72 98 07/23/20 07:30 07/23/20 08:00 07/23/20 07:30 07/23/20 07:30 07/23/20 08:00 Period Temp Pulse Resp BP Sys/Engle Pulse Ox Last 24 Hr 97.9 F-99.5 F 73-105 - 97-133/49-72 93-99 Intake and Output 07/22/20 07/23/20 07/23/20 21:59 05:59 13:59 Intake Total 240 0 200 Output Total 600 250 Balance -360 -250 200 Weight 136 lb 6.4 oz Intake & Output: Intake & Output 07/22/20 07/23/20 07/23/20 21:59 05:59 13:59 Intake Total 240 0 200 Output Total 600 250 Balance -360 -250 200 Weight 136 lb 6.4 oz Intake: Oral 0 200 Tube Feeding 240 Output: Urine Catheter Amount 600 250 Other: Meal Dinner Breakfast Percent of Meal Consumed 100% 100% Feeding Ability Independent Independent Urine Appearance Clear Clear Uretheral (Capellan) Clear Clear Urine Color Bright Yellow Bright Yellow Uretheral (Capellan) Pale Pale Urine Odor Normal Uretheral (Capellan) Normal Normal Stool Size Moderate Stool Color Brown Stool Consistency Soft # Bowel Movements 1 General appearance: no acute distress Exam: alert, oriented x 3. Interactive and appropriate. Extremities Exam Extremities exam: Present normal capillary refill, normal inspection, Foot pink and warm and neurovascular intact; Absent calf tenderness and Marj's sign Additional comments: silver dressing in place over the right hip. It is clean and intact with a nickel sized area of shadow drainage. OBJ DATA Labs CBC & Chem 7: 07/23/20 06:14 07/23/20 06:14 Labs: Abnormal Lab Results 07/23/20 07/23/2020 06:14 06:14 06:10 WBC 11.7 H RBC 3.67 L 3.66 L Hgb 11.8 L 11.6 L Hct 36.1 L 36.6 L Gran % Lymph % (Auto) Lymph # (Auto) Seg Neutrophils % 86 H Lymphocytes % 11 L 7 L BUN 36 H Creatinine 1.4 H Phosphorus 2.6 L Magnesium GGT 7 L Albumin 3.1 L Urine Ketones Urine Occult Blood Ur Leukocyte Esterase Urine RBC Urine WBC Urine Bacteria 07/21/20 07/21/20 07/21/20 10:55 08:05 08:05 WBC RBC 4.15 L Hgb 13.4 L Hct Gran % 81.0 H Lymph % (Auto) 9.2 L Lymph # (Auto) 0.84 L Seg Neutrophils % Lymphocytes % BUN Creatinine Phosphorus 2.6 L Magnesium 2.6 H GGT Albumin Urine Ketones 5/tr A Urine Occult Blood 0.2 A Ur Leukocyte Esterase 25 A Urine RBC 26 H Urine WBC 7 H Urine Bacteria Few A Meds: Medications Acetaminophen (Tylenol) 650 mg PO Q4-6HP PRN; Protocol PRN Reason: Per Pain Protocol/Fever > 101 Hydrocodone Bitart/Acetaminophen ([place]wale 7.5/325mg) 1 - 2 tab PO Q4HP PRN; Protocol PRN Reason: Per Pain Protocol Aspirin (Aspirin) 81 mg PO BID [facility] Last Admin: 07/23/20 09:07 Dose: 81 mg Documented by: Bisacodyl (Dulcolax) 10 mg MD Q2-3DAYS PRN PRN Reason: Constipation [facility] Admin: 07/23/20 09:06 Dose: 3.125 mg Documented by: Docusate Sodium (Colace) 100 mg PO BID [facility] Last Admin: 07/23/20 09:07 Dose: Not Given Documented by: Enoxaparin Sodium (Lovenox) 40 mg SQ DAILY [facility] Last Admin: 07/22/20 22:32 Dose: Not Given Documented by: Guaifenesin/Codeine Phosphate (Robitussin Ac) 10 ml PO Q4HP PRN PRN Reason: Cough Hydromorphone HCl (Dilaudid) 0 mg IV Q2HP PRN; Protocol PRN Reason: Per Pain Protocol Sodium Chloride (Sodium Chloride 0.9%) 1,000 mls @ 50 mls/hr IV .Q20H [facility] Last Admin: 07/22/20 22:23 Dose: Not Given Documented by: Acetaminophen (Ofirmev) 650 mg in 65 mls @ 130 mls/hr IV Q6HP PRN; Protocol PRN Reason: Per Pain Protocol/Fever > 101 Magnesium Sulfate (Magnesium Sulfate) 2 gm in 50 mls @ 50 mls/hr IV UD PRN PRN Reason: MG = or < 1.7 Lactated Ringer's (Lactated Ringers) 1,000 mls @ 100 mls/hr IV .Q10H [facility] Last Admin: 07/23/20 00:23 Dose: Not Given Documented by: Iron Carb/Multivit/Continuity Coordinator/Folic Acid (Multivitamin W/Minerals) 1 tab PO DAILY [facility] Last Admin: 07/23/20 09:07 Dose: Not Given Documented by: Ketorolac Tromethamine (Toradol) 15 mg IV Q6HP PRN; Protocol PRN Reason: Per Pain Protocol Stop: 07/23/20 18:45 Last Admin: 07/23/20 09:05 Dose: 15 mg Documented by: Magnesium Hydroxide (Milk Of Magnesia) 30 ml PO BIDP PRN PRN Reason: Constipation Naloxone HCl (Narcan) 0.1 mg IV Q2MIN PRN PRN Reason: Opiate Reversal Nitroglycerin (Nitrostat) 0.4 mg SL Q5MIN [facility] Ondansetron HCl (Zofran) 4 mg IV Q4HP PRN PRN Reason: Nausea And Vomiting Ondansetron HCl (Zofran Odt) 4 mg SL Q4-6HP PRN; Protocol PRN Reason: Nausea And Vomiting Pantoprazole Sodium (Protonix) 40 mg PO [facility] Last Admin: 07/22/20 22:32 Dose: 40 mg Documented by: Polyethylene Glycol (Miralax) 17 gm PO DAILYP PRN PRN Reason: Constipation Potassium Chloride (Klor-Con) 40 meq PO DAILYP PRN PRN Reason: K+ < 3.5 Senna (Senokot) 1 tab PO [facility] Last Admin: 07/22/20 22:20 Dose: Not Given Documented by: Senna/Docusate Sodium (Senna Plus Tablet) 1 tab PO [facility] Last Admin: 07/22/20 22:20 Dose: Not Given Documented by: Simvastatin (Zocor) 40 mg PO QHS [facility] Last Admin: 07/22/20 20:45 Dose: 40 mg Documented by: Sodium Biphosphate/Sodium Phosphate (Fleets Adult) 1 dose MD Q3-4DAYS PRN PRN Reason: Constipation Sodium Chloride (Saline Flush) 10 ml IV Q8 [facility] Last Admin: 07/23/20 05:17 Dose: 10 ml Documented by: Sodium Chloride (Saline Flush) 10 ml IV Q8 [facility] Last Admin: 07/23/20 05:18 Dose: 10 ml Documented by: Temazepam (Restoril) 15 mg PO [facility] PRN PRN Reason: Insomnia Throat Lozenges (Cepacol) 1 lozenge PO PRN PRN PRN Reason: Sore Throat Tramadol HCl (Ultram) 50 mg PO Q6HP PRN; Protocol PRN Reason: Pain A/P Assessment and plan (1) Closed hip fracture: Status: Acute Comment: Pt is an 85 yo male POD#2 s/p right leslie hip arthroplasty. --PT/OT: WBAT with right lower extremity. Continue posterior hip precautions. --continue pain medications. --continue diet. --prophy: aspirin, SCDs, IS. --dispo: home today or Friday depending on PT assessment and otherwise per hospitalist. Qualifiers: Encounter type: subsequent encounter Fracture healing: with nonunion Laterality: right Qualified Code(s): S72.001K - Fracture of unspecified part of neck of right femur, subsequent encounter for closed fracture with nonunion
--- NOTE | 2020-07-23 09:50 | Discharge Summary ---
Discharge Provider Provider Patient information: Note initiated : 07/23/20 at 9:42 am Service Date, if different from initiated Date: [] Patient: Bryce Gandhi 85 y/o M admitted on 07/21/20 for right hip fracture. Chief Complaint: right hip pain. Date of admission: 07/21/20 02:15 Discharge date: 07/23/20 Primary care physician: [facility] Consults: 07/21/20 Consult to Physician [CONS] Stat Comment: Consulting Provider: Simone Montelongo Reason For Exam: Physician to Consult COURSE Hospital Course Hospital course: Pt is an 85 yo male who sustained a fall resulting in a right hip fracture. He was subsequently transferred to [facility] and underwent right hip hemiarthroplasty on 07/21/2020. Overall hospital course has been fairly unremarkable. Vitals remain stable. Has mobilized well with PT. Discharge diagnosis: s/p right hip hemiarthroplasty Time Spent with Patient Time attestation: Total time spent providing and/or coordinating discharge services: Physical Examination Exam Incision healing: Yes Incision draining: No Incision red: No Clean and dry: Yes Weight bearing status: as tolerated Range of motion: posterior hip precautions until 6 weeks s/p surgery. DC Instructions-General Patient Instructions Additional Dressing Instructions: may shower with silver dressing in place. Do not submerge/soak incision. Keep clean and dry. If gets wet, OK to remove and replace new dry dressing. F/u with orthopedics in 2 weeks for staple removal/postoperative wound check. Avoid crossing your legs, sleep with the pillow between your legs. Avoid bending over to tie shoes, or leaning forward to get up from a deep chair--be mindful of the posterior hip precautions. Discharge Plan Patient/Caregiver Discharge Instructions Activity: as per physical therapy and increase activity as tolerated Diet: Regular Diet Prescriptions: New hydrocodone-acetaminophen 7.5-325 mg Tablet 1 - 2 tab PO Q4HP PRN (Reason: Per Pain Protocol) Qty: 60 RF: 0 docusate sodium 100 mg Capsule 100 mg PO BID Qty: 120 RF: 0 aspirin 81 mg Tablet,Chewable 81 mg PO BID 12 Days Qty: 24 RF: 0 Continued simvastatin [Zocor] 40 mg Tablet 40 mg PO QHS RF: 0 carvedilol 3.125 mg Tablet 3.125 mg PO BID RF: 0 nitroglycerin 0.4 mg tablet, sublingual 0.4 mg sublingual Q5MIN RF: 0 cholecalciferol (vitamin D3) 25 mcg (1,000 unit) Capsule 25 mcg PO QDAY RF: 0 Discontinued aspirin [Aspirin Low Dose] 81 mg Tablet,Delayed Release (Dr/Ec) 81 mg PO DAILY RF: 0 Other Ambulatory Orders: Physical Therapy at Discharge - [facility] (Routine) Location: None Selected Ordered By: Victor M Williamson Toilet Riser Discharge Order (ONCE) Location: None Selected Ordered By: Victor M Williamson Walker (ONCE) Location: None Selected Ordered By: Victor M Williamson Follow Up Plan Follow up with: Pancho Villar PA-C [Physician Air Conditioning Coil Assembler] - (2 week f/u for staple removal and postoperative wound check.) [facility] Admin [Primary Care Provider] - Patient Disposition: Home, Self-Care Prognosis: Fair Rehab Potential: Good Overall status at discharge: patient is progressing back to baseline Discharge Orders: Discharge Order (Routine); Ordered 07/23/20 Ordered By: Victor M Williamson Pending Pending Pending: Resuscitation Status Full Code Diet Regular Diet Start FriJul 21 Lunch Aspirin (Aspirin) 81 mg PO BID [facility] Last Admin: 07/23/20 09:07 Dose: 81 mg Documented by: Admin: 07/22/20 20:46 Dose: 81 mg Documented by: Admin: 07/22/20 08:11 Dose: 81 mg Documented by: Admin: 07/21/20 23:17 Dose: 81 mg Documented by: BRJIESH [facility] Last Admin: 07/23/20 09:06 Dose: 3.125 mg Documented by: Admin: 07/22/20 17:54 Dose: 3.125 mg Documented by: Admin: 07/22/20 08:11 Dose: 3.125 mg Documented by: Admin: 07/22/20 01:21 Dose: Not Given Documented by: Admin: 07/21/20 08:26 Dose: 3.125 mg Documented by: AYAKA Docusate Sodium (Colace) 100 mg PO BID [facility] Last Admin: 07/23/20 09:07 Dose: Not Given Documented by: Admin: 07/22/20 22:19 Dose: Not Given Documented by: Admin: 07/22/20 08:12 Dose: Not Given Documented by: Admin: 07/21/20 23:19 Dose: Not Given Documented by: Admin: 07/21/20 15:23 Dose: Not Given Documented by: AYAKA Enoxaparin Sodium (Lovenox) 40 mg SQ DAILY [facility] Last Admin: 07/22/20 22:32 Dose: Not Given Documented by: BRIJESH Sodium Chloride (Sodium Chloride 0.9%) 1,000 mls @ 50 mls/hr IV .Q20H [facility] Last Admin: 07/22/20 22:23 Dose: Not Given Documented by: Admin: 07/21/20 23:20 Dose: Not Given Documented by: Infusion: 07/21/20 17:12 Dose: 0 mls/hr Documented by: Admin: 07/21/20 03:10 Dose: 50 mls/hr Documented by: BRIJESH Lactated Ringer's (Lactated Ringers) 1,000 mls @ 100 mls/hr IV .Q10H [facility] Last Admin: 07/23/20 00:23 Dose: Not Given Documented by: Admin: 07/22/20 22:22 Dose: Not Given Documented by: Infusion: 07/22/20 08:35 Dose: 0 mls/hr Documented by: Admin: 07/22/20 02:54 Dose: Not Given Documented by: Admin: 07/21/20 21:00 Dose: 100 mls/hr Documented by: BRIJESH Iron Carb/Multivit/[place]/Folic Acid (Multivitamin W/Minerals) 1 tab PO DAILY [facility] Last Admin: 07/23/20 09:07 Dose: Not Given Documented by: Admin: 07/22/20 08:12 Dose: Not Given Documented by: Admin: 07/21/20 15:23 Dose: Not Given Documented by: AYAKA Ketorolac Tromethamine (Toradol) 15 mg IV Q6HP PRN; Protocol PRN Reason: Per Pain Protocol Stop: 07/23/20 18:45 Last Admin: 07/23/20 09:05 Dose: 15 mg Documented by: Admin: 07/22/20 20:45 Dose: 15 mg Documented by: Admin: 07/22/20 14:02 Dose: 15 mg Documented by: ALIDA Pantoprazole Sodium (Protonix) 40 mg PO [facility] Last Admin: 07/22/20 22:32 Dose: 40 mg Documented by: BRIJESH Senna (Senokot) 1 tab PO [facility] Last Admin: 07/22/20 22:20 Dose: Not Given Documented by: Admin: 07/21/20 23:19 Dose: Not Given Documented by: BRIJESH Senna/Docusate Sodium (Senna Plus Tablet) 1 tab PO [facility] Last Admin: 07/22/20 22:20 Dose: Not Given Documented by: Admin: 07/21/20 23:19 Dose: Not Given Documented by: BRIJESH Simvastatin (Zocor) 40 mg PO QHS [facility] Last Admin: 07/22/20 20:45 Dose: 40 mg Documented by: Admin: 07/21/20 23:17 Dose: 40 mg Documented by: BRIJESH Sodium Chloride (Saline Flush) 10 ml IV Q8 [facility] Last Admin: 07/23/20 05:17 Dose: 10 ml Documented by: Admin: 07/22/20 22:21 Dose: 10 ml Documented by: Admin: 07/22/20 14:02 Dose: 10 ml Documented by: [email or web address] Admin: 07/22/20 04:20 Dose: Not Given Documented by: Admin: 07/21/20 23:20 Dose: Not Given Documented by: Admin: 07/21/20 15:25 Dose: Not Given Documented by: AYAKA Sodium Chloride (Saline Flush) 10 ml IV Q8 [facility] Last Admin: 07/23/20 05:18 Dose: 10 ml Documented by: Admin: 07/22/20 20:46 Dose: 10 ml Documented by: Admin: 07/22/20 14:03 Dose: 10 ml Documented by: [email or web address] Admin: 07/22/20 04:20 Dose: Not Given Documented by: Admin: 07/21/20 23:20 Dose: Not Given Documented by: DACREE Shift Summary 07/23/20 04:41 Shift Summary by Camila Boyle&Ox4 - pleasant, cooperative. VSS on RA. IV infusing LR at 100mL/hr. Capellan in situ draining clear, pale urine - He has declined offers of pain medication and states he doesnt like narcotics , but does have orders available and new order for Tramadol but, still has not taken. silver mepilex in place/ cdi. He has hx of being non-compliant with his home medication doses. 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 Patient is full code for surgery, but has DNR POLST - may need to be updated post-op. Will update at bedside report. Initialized on 07/23/20 04:41 - END OF NOTE
--- NOTE | 2020-07-23 12:29 | XRay Report ---
HISTORY: Interval change FINDINGS: There is no prior study to compare with. There are couple calcified granulomata laterally in the right lower lobe. There are also couple calcified lymph nodes in the lateral aspect of the left upper chest wall below the axilla. The lungs are clear without evidence of infiltrate or edema. No pneumothorax or pleural effusion are present. The heart size, mediastinum and kiran are normal. An obliquely oriented fracture is present in the midshaft left clavicle. This appears recent. Nondisplaced fractures are present posteriorly in the left fifth and sixth rib. They may be old. There are postsurgical changes in the right shoulder and arthritis in both shoulders. There are also clips in the epigastrium. A moderate compression fracture is seen at T11. IMPRESSION: Old granulomatous disease Recent fracture of the left clavicle Indeterminate age of fractures at T11 and posteriorly in the left fifth and sixth rib Interpreted and Authenticated by: Viraj Ponce 07/23/20
[2020-07-23] MEDS: ENOXAPARIN 40 MG/0.4 ML SYRINGE SQ SCH (14:18)
[2020-07-23] MEDS ORDERED: PHOSPHORUS 250 MG TABLET PO ONE (15:46)
[2020-07-23] MEDS ORDERED: 0.9 % SODIUM CHLORIDE 1,000 ML BAG IV SCH (16:00)
--- NOTE | 2020-07-23 16:03 | Internal Med Progress Note ---
SUBJECTIVE Subjective Patient information: Note initiated : 07/23/20 at 3:56 pm Service Date, if different from initiated Date: [] Patient: Bryce Gandhi 85 y/o M admitted on 07/21/20 for right hip fracture. Chief Complaint: [] May shower with silver dressing in place. Do not submerge/soak incision. Keep clean and dry. If gets wet, OK to remove and replace new dry dressing. F/u with orthopedics in 2 weeks for staple removal/postoperative wound check. Avoid crossing your legs, sleep with the pillow between your legs. Avoid bending over to tie shoes, or leaning forward to get up from a deep chair--be mindful of the posterior hip precautions. Mr. Gandhi is a 85 year old M who presents to the ER from [facility] following a fall that resulted in right hip fracture. Dr. Mckeon was consulted and requested patient to be transferred to [facility] for further management/operative intervention. I received a phone call from Dr. Turcios about patient's status and the need for transfer to [facility]. Patient accepted and arrived in the ER. Patient is fairly stable Patient denies lightheadedness dizziness. 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 He came home and sat on the stairs, he attributes fall getting off balance while he was getting off on the stairs and turning around. He denies chest pain, palpitation, lightheadedness, thunderclap headache, unilateral weakness or incontinence. Review of patient prior medical history includes hypertension/coronary disease/hyperlipidemia with a recent hospitalization or decompensations. He is a fairly active 85-year-old gentleman 07/22 Patient has mild pain from right fracture area. Denies fever, chills, nausea or vomiting. Right hip cemented leslie arthroplasty was performed by Dr. Amaya on 07/21/20. PT OT 07/23 Pt does not have any new complaints. The pain is controlled. Denies nausea, vomiting, fever, or chills. He was found to have frequent PVCs on monitor. Magnesium and potassium within normal limits Orthopedics cleared to discharge this patient ROS: Positive for right hip pain. All other systems were reviewed and negative. Constitutional Vitals: Vital Signs Temp Pulse Resp BP Pulse Ox 98.8 F 79 18 127/72 98 07/23/20 12:00 07/23/20 12:00 07/23/20 12:00 07/23/20 07:30 07/23/20 14:00 Period Temp Pulse Resp BP Sys/Engle Pulse Ox Last 24 Hr 97.9 F-99.5 F 74-105 97-133/49-72 93-100 Intake and Output 07/23/20 07/23/20 07/23/20 05:59 13:59 21:59 Intake Total 0 200 200 Output Total 250 450 300 Balance -250 -250 -100 Intake & Output: Intake & Output 07/23/20 07/23/20 07/23/20 05:59 13:59 21:59 Intake Total 0 200 200 Output Total 250 450 300 Balance -250 -250 -100 Intake: Oral 0 200 200 Output: Urine Catheter Amount 250 Void Amount 450 300 Other: Meal Breakfast Lunch Percent of Meal Consumed 100% 100% Feeding Ability Independent Independent Urine Appearance Clear Clear Uretheral ([place]) Clear Urine Color Bright Yellow Uretheral ([place]) Pale Urine Odor Uretheral ([place]) Normal Stool Size Moderate Stool Color Brown Stool Consistency Soft # Bowel Movements 1 Additional findings Additional findings: General - No acute distress Eyes - PERRLA, EOM intact ENT no rhinorrhea, no noticeable or palpable swelling, no redness or rash around throat or on face Neck supple, no JVD, no thyromegaly Respiratory: Lungs - CTA, no use of accessary muscles. Cardiovascular - RRR no m/r/g, GI - Normal bowel sounds, no distended, soft. Extremeties -Dressing on right hip dry Hemo/lymphatic/immune no lymphadenopathy Neurological Alert and oriented x 3, no focal neurological deficits. Psychiatry flat affect OBJ DATA Labs CBC & Chem 7: 07/23/20 06:14 07/23/20 06:14 Labs: Abnormal Lab Results 07/23/20 07/23/20 07/22/20 06:14 06:14 06:10 WBC 11.7 H RBC 3.67 L 3.66 L Hgb 11.8 L 11.6 L Hct 36.1 L 36.6 L Gran % Lymph % (Auto) Lymph # (Auto) Seg Neutrophils % 86 H Lymphocytes % 11 L 7 L BUN 36 H Creatinine 1.4 H Phosphorus 2.6 L Magnesium GGT 7 L Albumin 3.1 L Urine Ketones Urine Occult Blood Ur Leukocyte Esterase Urine RBC Urine WBC Urine Bacteria 09/18/20 09/18/20 09/18/20 10:55 08:05 08:05 WBC RBC 4.15 L Hgb 13.4 L Hct Gran % 81.0 H Lymph % (Auto) 9.2 L Lymph # (Auto) 0.84 L Seg Neutrophils % Lymphocytes % BUN Creatinine Phosphorus 2.6 L Magnesium 2.6 H GGT Albumin Urine Ketones 5/tr A Urine Occult Blood 0.2 A Ur Leukocyte Esterase 25 A Urine RBC 26 H Urine WBC 7 H Urine Bacteria Few A Meds: Medications Acetaminophen (Tylenol) 650 mg PO Q4-6HP PRN; Protocol PRN Reason: Per Pain Protocol/Fever > 101 Hydrocodone Bitart/Acetaminophen ([place] 7.5/325mg) 1 - 2 tab PO Q4HP PRN; Protocol PRN Reason: Per Pain Protocol Aspirin (Aspirin) 81 mg PO BID [facility] Last Admin: 07/23/20 09:07 Dose: 81 mg Documented by: Bisacodyl (Dulcolax) 10 mg [place] Q2-3DAYS PRN PRN Reason: Constipation [facility] Last Admin: 07/23/20 09:06 Dose: 3.125 mg Documented by: Docusate Sodium (Colace) 100 mg PO BID [facility] Last Admin: 07/23/20 09:07 Dose: Not Given Documented by: Enoxaparin Sodium (Lovenox) 40 mg SQ DAILY [facility] Last Admin: 07/23/20 14:18 Dose: 40 mg Documented by: Guaifenesin/Codeine Phosphate (Robitussin Ac) 10 ml PO Q4HP PRN PRN Reason: Cough Hydromorphone HCl (Dilaudid) 0 mg IV Q2HP PRN; Protocol PRN Reason: Per Pain Protocol Sodium Chloride (Sodium Chloride 0.9%) 1,000 mls @ 75 mls/hr IV .[id number] [facility] Last Admin: 07/22/20 22:23 Dose: Not Given Documented by: Acetaminophen (Ofirmev) 650 mg in 65 mls @ 130 mls/hr IV Q6HP PRN; Protocol PRN Reason: Per Pain Protocol/Fever > 101 Magnesium Sulfate (Magnesium Sulfate) 2 gm in 50 mls @ 50 mls/hr IV UD PRN PRN Reason: MG = or < 1.7 Lactated Ringer's (Lactated Ringers) 1,000 mls @ 100 mls/hr IV .Q10H [facility] Last Admin: 07/23/20 00:23 Dose: Not Given Documented by: Iron Carb/Multivit/[place]/Folic Acid (Multivitamin W/Minerals) 1 tab PO DAILY [facility] Last Admin: 07/23/20 09:07 Dose: Not Given Documented by: Ketorolac Tromethamine (Toradol) 15 mg IV Q6HP PRN; Protocol PRN Reason: Per Pain Protocol Stop: 07/23/20 18:45 Last Admin: 07/23/20 09:05 Dose: 15 mg Documented by: Magnesium Hydroxide (Milk Of Magnesia) 30 ml PO BIDP PRN PRN Reason: Constipation Naloxone HCl (Narcan) 0.1 mg IV Q2MIN PRN PRN Reason: Opiate Reversal Nitroglycerin (Nitrostat) 0.4 mg SL Q5MIN [facility] Ondansetron HCl (Zofran) 4 mg IV Q4HP PRN PRN Reason: Nausea And Vomiting Ondansetron HCl (Zofran Odt) 4 mg SL Q4-6HP PRN; Protocol PRN Reason: Nausea And Vomiting Pantoprazole Sodium (Protonix) 40 mg PO [facility] Last Admin: 07/22/20 22:32 Dose: 40 mg Documented by: Polyethylene Glycol (Miralax) 17 gm PO DAILYP PRN PRN Reason: Constipation Potassium Chloride (Klor-Con) 40 meq PO DAILYP PRN PRN Reason: K+ < 3.5 Senna (Senokot) 1 tab PO [facility] Last Admin: 07/22/20 22:20 Dose: Not Given Documented by: Senna/Docusate Sodium (Senna Plus Tablet) 1 tab PO [facility] Last Admin: 07/22/20 22:20 Dose: Not Given Documented by: Simvastatin (Zocor) 40 mg PO QHS [facility] Last Admin: 07/22/20 20:45 Dose: 40 mg Documented by: Sodium Biphosphate/Sodium Phosphate (Fleets Adult) 1 dose DE Q3-4DAYS PRN PRN Reason: Constipation Sodium Chloride (Saline Flush) 10 ml IV Q8 [facility] Last Admin: 07/23/20 14:18 Dose: 10 ml Documented by: Sodium Chloride (Saline Flush) 10 ml IV Q8 [facility] Last Admin: 07/23/20 14:18 Dose: 10 ml Documented by: Temazepam (Restoril) 15 mg PO HSP PRN PRN Reason: Insomnia Throat Lozenges (Cepacol) 1 lozenge PO PRN PRN PRN Reason: Sore Throat Tramadol HCl (Ultram) 50 mg PO Q6HP PRN; Protocol PRN Reason: Pain A/P Narrative A/P Narrative: 1. Right hip fracture- s/p right hip cemented leslie arthroplasty was performed by Dr. Amaya on 07/21/20. Postop pain management on opioids As per Dr. Amaya, "May shower with silver dressing in place. Do not submerge/soak incision. Keep clean and dry. If gets wet, OK to remove and replace new dry dressing. F/u with orthopedics in 2 weeks for staple removal/postoperative wound check. Avoid crossing your legs, sleep with the pillow between your legs. Avoid bending over to tie shoes, or leaning forward to get up from a deep chair--be mindful of the posterior hip precautions." 2. History of hypertension restart Coreg 3. History of CAD/hyperlipidemia continue statin/aspirin 4. PVCs - Mag and K WNL. continue coreg. f/u with cardiology 5. Full code 6. Prophylaxis will be as per orthopedics Plan PT/OT/CM Restart pre-existing home medications Pain management Directed therapies Time Spent With Patient Time: Total time spent is greater than 50% in coordination of care (as documented) at patient's floor/unit and/or counseling patient: QUALITY Stroke Symptom Onset Unknown: No VTE Deep Vein Thrombosis/Pulmonary Embolism Present on Admission: No
[2020-07-23] MEDS: 0.9 % SODIUM CHLORIDE 1,000 ML IV SCH (16:42)
[2020-07-23] MEDS: ACETAMINOPHEN 325 MG TABLET PO PRN (20:30)
[2020-07-24] MEDS: SENNOSIDES/DOCUSATE SODIUM 1 TAB TABLET PO SCH ×2 (00:07→22:14)
[2020-07-24] MEDS: SENNOSIDES 1 TABLET PO SCH ×2 (00:07→22:14)
[2020-07-24] MEDS: DOCUSATE SODIUM 100 MG CAPSULE PO SCH ×4 (00:08→22:14)
[2020-07-24] MEDS: SIMVASTATIN 40 MG TABLET PO SCH ×2 (00:09→22:14)
[2020-07-24] MEDS: PANTOPRAZOLE 40 MG TABLET PO SCH ×2 (00:09→22:13)
[2020-07-24] MEDS: ASPIRIN 81 MG TAB.CHEW PO SCH ×3 (00:09→22:14)
[2020-07-24] MEDS: 0.9 % SODIUM CHLORIDE 10 ML SYRINGE IV SCH ×4 (00:09→22:14)
[2020-07-24] MEDS: LACTATED RINGERS 1,000 ML IV SCH ×2 (00:13→07:08)
[2020-07-24] MEDS: ACETAMINOPHEN 325 MG TABLET PO PRN ×2 (01:04→15:46)
[2020-07-24 06:34] LABS: Hematocrit 31.1 % (40.1-51.0); Hemoglobin 10.1 g/dL (13.7-17.5); Mean Corpuscular HGB Conc 32.5 g/dL (31.0-36.0); Mean Platelet Volume 9.4 fL (7.4-10.4); Platelet Count 173 K/mcL (140-440); RBC 3.14 M/mcL (4.63-6.08); Red Cell Distribution Width 13.3 % (11.5-14.5); WBC 7.8 K/mcL (4.50-11.00)
--- NOTE | 2020-07-24 06:44 | Operative Note ---
DATE OF OPERATION: 07/21/2020 PREOPERATIVE DIAGNOSIS: Right femoral neck fracture, displaced. POSTOPERATIVE DIAGNOSIS: Right femoral neck fracture, displaced. PROCEDURE: Right hip cemented hemiarthroplasty. SURGEON: Vikas Amaya MD TELEPHONE MAINTAINER: Victor M Williamson PA-C. This provider's expertise and technical skill were required throughout the case. The PA assisted with preoperative coordination, intraoperative retraction, wound closure, dressing and splint application, as well as postoperative documentation and care coordination. COMPLICATIONS: None. BLOOD LOSS: About 50 mL IMPLANTS: A size 6 stem with a 127 degree angle with a +5 neck length, 50 mm unipolar ball. DESCRIPTION OF PROCEDURE: The patient was brought to the operating room and put to sleep with general LMA anesthesia. Once asleep, the patient had the right hip sterilely prepped and draped in the usual sterile fashion after being put to sleep on the operative table with general endotracheal anesthesia. He was placed in a Mars positioner. The right hip was sterilely prepped and draped, and we made a superior approach to the hip after a timeout had been performed confirming the operative site by initials, consent form and x-rays. Once done, we placed Ioban over the skin. We made a superior approach to the hip. We exposed the capsule, which was then released. We then removed the fractured femoral neck and ball and the debris from intra-articular. We then broached up the canal to a size 6 stem. Once done, we were able to trial the components. We trialed the standard neck length and a +5. The +5 was the most stable and recreated leg length. We irrigated thoroughly and then cemented into place a size 6 stem with a canal restrictor and a centralizer of 11 mm. Once done, we were able to trial the components once again; the +5 neck length fitting the best with the most stability. We irrigated thoroughly and were able to close the capsule with #1 Ethibond, closed the fascial layer with #1 Stratafix. Skin was closed with Stratafix and adhesive closure. The patient tolerated this well. Sterile bandage was applied. RBH:sharyn Job ID: [id number] Doc ID: [id number] Vikas Amaya MD
[2020-07-24 07:15] LABS: Bilirubin,Direct < 0.2 mg/dL (0.0-0.3); Chloride 107 mmol/L (96-108)
[2020-07-24 07:18] LABS: ALT/SGPT < 5 U/l (0-40); AST/SGOT 22 U/l (0-37); Albumin 2.8 gm/dL (3.2-5.2); Albumin/Globulin Ratio 1.2 (1.0-2.3); Alkaline Phosphatase 78 U/L (39-117); Bilirubin,Total 0.3 mg/dL (0.0-1.0); Blood Urea Nitrogen 34 mg/dl (8-23); Calcium 8.8 mg/dl (8.6-10.4); Carbon Dioxide 22 mmol/L (22-30); Globulin 2.4 gm/dL (2.2-3.7); Glomerular Filtration Rate 61; Glucose 94 mg/dL (70-105); Lactate Dehydrogenase 186 U/L (94-250); Phosphorous 3.1 mg/dL (2.7-4.5); Triglycerides 117 mg/dl (<150); Uric Acid 5.7 mg/dL (2.5-8.0)
[2020-07-24 08:20] LABS: Basophils % (Manual) 1 % (0-2); Eosinophils % (Manual) 5 % (0-7); Lymphocytes % 12 % (15-49); Monocytes % (Manual) 4 % (1-12); Platelet Estimate NORMAL (NORMAL); RBC Morphology NORMAL (NORMAL); Segmented Neutrophils % 78 % (38-78)
[2020-07-24] MEDS: MULTIVIT,THER IRON,CA,FA & MIN 1 TABLET PO SCH (09:10)
[2020-07-24] MEDS: CARVEDILOL 3.125 MG TABLET PO SCH ×2 (09:11→17:41)
[2020-07-24] MEDS: ENOXAPARIN 40 MG/0.4 ML SYRINGE SQ SCH (09:12)
--- NOTE | 2020-07-24 17:40 | Internal Med Progress Note ---
SUBJECTIVE Subjective Patient information: Note initiated : 07/24/20 at 5:38 pm Service Date, if different from initiated Date: [] Patient: Bryce Gandhi 85 y/o M admitted on 07/21/20 for right hip fracture. Chief Complaint: [] May shower with silver dressing in place. Do not submerge/soak incision. Keep clean and dry. If gets wet, OK to remove and replace new dry dressing. F/u with orthopedics in 2 weeks for staple removal/postoperative wound check. Avoid crossing your legs, sleep with the pillow between your legs. Avoid bending over to tie shoes, or leaning forward to get up from a deep chair--be mindful of the posterior hip precautions. Mr. Gandhi is a 85 year old M who presents to the ER from [facility] following a fall that resulted in right hip fracture. Dr. Mckeon was consulted and requested patient to be transferred to [facility] for further management/operative intervention. I received a phone call from Dr. Turcios about patient's status and the need for transfer to [facility]. Patient accepted and arrived in the ER. Patient is fairly stable Patient denies lightheadedness dizziness. 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 He came home and sat on the stairs, he attributes fall getting off balance while he was getting off on the stairs and turning around. He denies chest pain, palpitation, lightheadedness, thunderclap headache, unilateral weakness or incontinence. Review of patient prior medical history includes hypertension/coronary disease/hyperlipidemia with a recent hospitalization or decompensations. He is a fairly active 85-year-old gentleman 07/22 Patient has mild pain from right fracture area. Denies fever, chills, nausea or vomiting. Right hip cemented leslie arthroplasty was performed by Dr. Amaya on 07/21/20. PT OT 07/23 Pt does not have any new complaints. The pain is controlled. Denies nausea, vomiting, fever, or chills. He was found to have frequent PVCs on monitor. Magnesium and potassium within normal limits Orthopedics cleared to discharge this patient 07/24 Patient does not have any complaints and feels fine. Denies fever or chills. Denies dysuria. he had a fever late yesterday afternoon and this afternoon. Chest x-ray no acute change Blood culture and urinalysis were ordered Physical therapy still recommended skilled rehab SNF/Rehab prior to DC home. ROS: Positive for right hip pain. All other systems were reviewed and negative. Constitutional Vitals: Vital Signs Temp Pulse Resp BP Pulse Ox 98.2 F 99 H 22 133/68 96 07/24/20 16:00 07/24/20 16:00 07/24/20 16:00 07/24/20 16:00 07/24/20 16:00 Period Temp Pulse Resp BP Sys/Engle Pulse Ox Last 24 Hr 97.3 F-98.9 F 66-103 16- 99-139/52-73 95-100 Intake and Output 07/24/20 07/24/20 07/24/20 05:59 13:59 21:59 Intake Total 450 900 Output Total 700 500 350 Balance -250 400 -350 Intake & Output: Intake & Output 07/24/20 07/24/20 07/24/20 05:59 13:59 21:59 Intake Total 450 900 Output Total 700 500 350 Balance -250 400 -350 Intake: Oral 450 900 Output: Void Amount 700 500 350 Other: Meal Lunch Percent of Meal Consumed 100% Feeding Ability Assist with Tray Set Up Urine Appearance Clear Urine Color Pale Pale Straw Urine Odor Normal Normal Additional findings Additional findings: General - No acute distress Eyes - PERRLA, EOM intact ENT no rhinorrhea, no noticeable or palpable swelling, no redness or rash around throat or on face Neck supple, no JVD, no thyromegaly Respiratory: Lungs - CTA, no use of accessary muscles. Cardiovascular - RRR no m/r/g, GI - Normal bowel sounds, no distended, soft. Extremeties -Dressing on right hip dry Hemo/lymphatic/immune no lymphadenopathy Neurological Alert and oriented x 3, no focal neurological deficits. Psychiatry flat affect OBJ DATA Labs CBC & Chem 7: 07/24/20 05:25 07/24/20 05:25 Labs: Abnormal Lab Results 07/24/20 07/24/20 07/23/20 05:25 05:25 06:14 WBC RBC 3.14 L Hgb 10.1 L Hct 31.1 L Seg Neutrophils % Lymphocytes % 12 L BUN 34 H 36 H Creatinine 1.4 H Phosphorus 2.6 L GGT 7 L Total Protein 5.2 L Albumin 2.8 L 3.1 L 07/23/20 07/22/20 06:14 06:10 WBC 11.7 H RBC 3.67 L 3.66 L Hgb 11.8 L 11.6 L Hct 36.1 L 36.6 L Seg Neutrophils % 86 H Lymphocytes % 11 L 7 L BUN Creatinine Phosphorus GGT Total Protein Albumin Meds: Medications Acetaminophen (Tylenol) 650 mg PO Q4-6HP PRN; Protocol PRN Reason: Per Pain Protocol/Fever > 101 Last Admin: 07/24/20 15:46 Dose: 650 mg Documented by: Hydrocodone Bitart/Acetaminophen ([place] 7.5/325mg) 1 - 2 tab PO Q4HP PRN; Protocol PRN Reason: Per Pain Protocol Aspirin (Aspirin) 81 mg PO BID [facility] Last Admin: 07/24/20 09:11 Dose: 81 mg Documented by: Bisacodyl (Dulcolax) 10 mg [place] Q2-3DAYS PRN PRN Reason: Constipation [facility] Last Admin: 07/24/20 09:11 Dose: 3.125 mg Documented by: Docusate Sodium (Colace) 100 mg PO BID [facility] Last Admin: 07/24/20 09:59 Dose: Not Given Documented by: Enoxaparin Sodium (Lovenox) 40 mg SQ DAILY [facility] Last Admin: 07/24/20 09:12 Dose: 40 mg Documented by: Guaifenesin/Codeine Phosphate (Robitussin Ac) 10 ml PO Q4HP PRN PRN Reason: Cough Hydromorphone HCl (Dilaudid) 0 mg IV Q2HP PRN; Protocol PRN Reason: Per Pain Protocol Acetaminophen (Ofirmev) 650 mg in 65 mls @ 130 mls/hr IV Q6HP PRN; Protocol PRN Reason: Per Pain Protocol/Fever > 101 Magnesium Sulfate (Magnesium Sulfate) 2 gm in 50 mls @ 50 mls/hr IV UD PRN PRN Reason: MG = or < 1.7 Iron Carb/Multivit/[place]/Folic Acid (Multivitamin W/Minerals) 1 tab PO DAILY [facility] Last Admin: 07/24/20 09:10 Dose: 1 tab Documented by: Magnesium Hydroxide (Milk Of Magnesia) 30 ml PO BIDP PRN PRN Reason: Constipation Naloxone HCl (Narcan) 0.1 mg IV Q2MIN PRN PRN Reason: Opiate Reversal Nitroglycerin (Nitrostat) 0.4 mg SL Q5MIN [facility] Ondansetron HCl (Zofran) 4 mg IV Q4HP PRN PRN Reason: Nausea And Vomiting Ondansetron HCl (Zofran Odt) 4 mg SL Q4-6HP PRN; Protocol PRN Reason: Nausea And Vomiting Pantoprazole Sodium (Protonix) 40 mg PO [facility] Last Admin: 07/24/20 00:09 Dose: 40 mg Documented by: Polyethylene Glycol (Miralax) 17 gm PO DAILYP PRN PRN Reason: Constipation Potassium Chloride (Klor-Con) 40 meq PO DAILYP PRN PRN Reason: K+ < 3.5 Senna (Senokot) 1 tab PO [facility] Last Admin: 07/24/20 00:07 Dose: Not Given Documented by: Senna/Docusate Sodium (Senna Plus Tablet) 1 tab PO [facility] Last Admin: 07/24/20 00:07 Dose: Not Given Documented by: Simvastatin (Zocor) 40 mg PO QHS [facility] Last Admin: 07/24/20 00:09 Dose: 40 mg Documented by: Sodium Biphosphate/Sodium Phosphate (Fleets Adult) 1 dose [place] Q3-4DAYS PRN PRN Reason: Constipation Sodium Chloride (Saline Flush) 10 ml IV Q8 [facility] Last Admin: 07/24/20 15:45 Dose: 10 ml Documented by: Temazepam (Restoril) 15 mg PO HSP PRN PRN Reason: Insomnia Throat Lozenges (Cepacol) 1 lozenge PO PRN PRN PRN Reason: Sore Throat Tramadol HCl (Ultram) 50 mg PO Q6HP PRN; Protocol PRN Reason: Pain A/P Narrative A/P Narrative: 1. Right hip fracture- s/p right hip cemented leslie arthroplasty was performed by Dr. Amaya on 07/21/20. Postop pain management on opioids As per Dr. Amaya, "May shower with silver dressing in place. Do not submerge/soak incision. Keep clean and dry. If gets wet, OK to remove and replace new dry dressing. F/u with orthopedics in 2 weeks for staple removal/postoperative wound check. Avoid crossing your legs, sleep with the pillow between your legs. Avoid bending over to tie shoes, or leaning forward to get up from a deep chair--be mindful of the posterior hip precautions." 2. History of hypertension restart Coreg 3. History of CAD/hyperlipidemia continue statin/aspirin 4. PVCs - Mag and K WNL. continue coreg. f/u with cardiology 5. Full code 6. Prophylaxis will be as per orthopedics 7. Fever late yesterday afternoon and this afternoon. Chest x-ray no acute change. Blood culture and urinalysis were ordered Plan PT/OT/CM Restart pre-existing home medications Pain management Directed therapies Physical therapy still recommended skilled rehab SNF/Rehab prior to DC home. Time Spent With Patient Time: Total time spent is greater than 50% in coordination of care (as documented) at patient's floor/unit and/or counseling patient: QUALITY Stroke Symptom Onset Unknown: No VTE Deep Vein Thrombosis/Pulmonary Embolism Present on Admission: No
[2020-07-24 19:19] LABS: Appearance,Urine CLEAR; Bacteria,Urine 0 /hpf (0); Bilirubin,Urine NEG (NEG); Color,Urine YELLOW; Culture Indicated,Urine NO; Glucose,Urine (UA) NEGATIVE (NEG); Ketones,Urine NEG (NEG); Leukocyte Esterase,Urine NEG /uL (NEG); Mucus,Urine FEW /hpf (0); Nitrate,Urine NEG (NEG); Protein,Urine NEG (NEG); Specific Gravity,Urine 1.019 (1.000-1.035); Urine Blood 0.03 mg/dL (<0.03); Urine RBC 4 /hpf (0-1); Urine Squamous Epithelial Cell < 1 /hpf (0-4); Urine WBC 2 /hpf (0-4)
[2020-07-25] MEDS: 0.9 % SODIUM CHLORIDE 10 ML SYRINGE IV SCH ×2 (04:05→15:23)
[2020-07-25] MEDS: ACETAMINOPHEN 325 MG TABLET PO PRN (05:25)
[2020-07-25 07:26] LABS: Hemoglobin 10.8 g/dL (13.7-17.5); Mean Cell Volume 97.3 fL (80.0-100.0); Mean Corpuscular HGB Conc 32.7 g/dL (31.0-36.0); Mean Platelet Volume 9.5 fL (7.4-10.4); Platelet Count 226 K/mcL (140-440); RBC 3.39 M/mcL (4.63-6.08); Red Cell Distribution Width 13.1 % (11.5-14.5); WBC 8.9 K/mcL (4.50-11.00)
[2020-07-25 07:51] LABS: ALT/SGPT 7 U/l (0-40); AST/SGOT 22 U/l (0-37); Albumin 2.9 gm/dL (3.2-5.2); Alkaline Phosphatase 86 U/L (39-117); Bilirubin,Direct < 0.2 mg/dL (0.0-0.3); Bilirubin,Total 0.3 mg/dL (0.0-1.0); Calcium 8.9 mg/dl (8.6-10.4); Carbon Dioxide 24 mmol/L (22-30); Chloride 104 mmol/L (96-108); Globulin 2.8 gm/dL (2.2-3.7); Glomerular Filtration Rate 61; Glucose 99 mg/dL (70-105); Lactate Dehydrogenase 182 U/L (94-250); Phosphorous 2.8 mg/dL (2.7-4.5); Triglycerides 121 mg/dl (<150); Uric Acid 5.3 mg/dL (2.5-8.0)
[2020-07-25 07:53] LABS: Blood Urea Nitrogen 27 mg/dl (8-23)
--- NOTE | 2020-07-25 07:53 | Orthopedic Progress Note ---
SUBJECTIVE Subjective Patient information: Note initiated : 07/25/20 at 7:52 am Service Date, if different from initiated Date: [] Patient: Bryec Gandhi 85 y/o M admitted on 07/21/20 for right hip fracture. Chief Complaint: [Pt is stable this morning on post operative day without any significant concerns or complaints. Patients vital signs have remained stable. Patients dressing is dry and is grossly intact from a neurovascular and motor standpoint. Patients 10 point ROS is otherwise negative. ] Constitutional Vitals: Vital Signs Temp Pulse Resp BP Pulse Ox 98.2 F 80 20 140/70 95 07/25/20 03:43 07/25/20 03:43 07/25/20 03:43 07/25/20 03:43 07/25/20 03:43 Period Temp Pulse Resp BP Sys/Engle Pulse Ox Last 24 Hr 97.3 F-98.2 F 79-99 16-22 98-140/52-73 95-100 Intake and Output 07/24/20 07/25/20 07/25/20 21:59 05:59 13:59 Intake Total 580 150 Output Total 500 825 225 Balance 80 -675 -225 Weight 136 lb Intake & Output: Intake & Output 07/24/20 07/25/20 07/25/20 21:59 05:59 13:59 Intake Total 580 150 Output Total 500 825 225 Balance 80 -675 -225 Weight 136 lb Intake: Oral 580 150 Output: Void Amount 500 825 225 Other: Meal Dinner Percent of Meal Consumed 100% Feeding Ability Independent Urine Appearance Clear Clear Urine Color Bright Yellow Pale Urine Odor Normal Normal Extremities Exam Extremities exam: Present normal capillary refill, normal inspection, Foot pink and warm and neurovascular intact OBJ DATA Labs CBC & Chem 7: 07/25/20 06:10 07/25/20 06:10 Labs: Abnormal Lab Results 07/25/20 07/25/20 07/24/20 06:10 06:10 18:15 WBC RBC 3.39 L Hgb 10.8 L Hct 33.0 L Seg Neutrophils % Lymphocytes % BUN Creatinine Phosphorus GGT Total Protein 5.7 L Albumin 2.9 L Urine Occult Blood 0.03 A Urine Urobilinogen 2.0 A Urine RBC 4 H 07/24/20 07/24/20 07/23/20 05:25 05:25 06:14 WBC RBC 3.14 L Hgb 10.1 L Hct 31.1 L Seg Neutrophils % Lymphocytes % 12 L BUN 34 H 36 H Creatinine 1.4 H Phosphorus 2.6 L GGT 7 L Total Protein 5.2 L Albumin 2.8 L 3.1 L Urine Occult Blood Urine Urobilinogen Urine RBC 07/23/20 07/22/20 06:14 06:10 WBC 11.7 H RBC 3.67 L 3.66 L Hgb 11.8 L 11.6 L Hct 36.1 L 36.6 L Seg Neutrophils % 86 H Lymphocytes % 11 L 7 L BUN Creatinine Phosphorus GGT Total Protein Albumin Urine Occult Blood Urine Urobilinogen Urine RBC Meds: Medications Acetaminophen (Tylenol) 650 mg PO Q4-6HP PRN; Protocol PRN Reason: Per Pain Protocol/Fever > 101 Last Admin: 07/25/20 05:25 Dose: 650 mg Documented by: Hydrocodone Bitart/Acetaminophen ([place] 7.5/325mg) 1 - 2 tab PO Q4HP PRN; Protocol PRN Reason: Per Pain Protocol Aspirin (Aspirin) 81 mg PO BID [facility] Last Admin: 07/24/20 22:14 Dose: 81 mg Documented by: Bisacodyl (Dulcolax) 10 mg AK Q2-3DAYS PRN PRN Reason: Constipation [facility] Last Admin: 07/24/20 17:41 Dose: 3.125 mg Documented by: Docusate Sodium (Colace) 100 mg PO BID [facility] Last Admin: 07/24/20 22:14 Dose: Not Given Documented by: Enoxaparin Sodium (Lovenox) 40 mg SQ DAILY [facility] Last Admin: 07/24/20 09:12 Dose: 40 mg Documented by: Guaifenesin/Codeine Phosphate (Robitussin Ac) 10 ml PO Q4HP PRN PRN Reason: Cough Hydromorphone HCl (Dilaudid) 0 mg IV Q2HP PRN; Protocol PRN Reason: Per Pain Protocol Acetaminophen (Ofirmev) 650 mg in 65 mls @ 130 mls/hr IV Q6HP PRN; Protocol PRN Reason: Per Pain Protocol/Fever > 101 Magnesium Sulfate (Magnesium Sulfate) 2 gm in 50 mls @ 50 mls/hr IV UD PRN PRN Reason: MG = or < 1.7 Iron Carb/Multivit/[place]/Folic Acid (Multivitamin W/Minerals) 1 tab PO DAILY [facility] Last Admin: 07/24/20 09:10 Dose: 1 tab Documented by: Magnesium Hydroxide (Milk Of Magnesia) 30 ml PO BIDP PRN PRN Reason: Constipation Naloxone HCl (Narcan) 0.1 mg IV Q2MIN PRN PRN Reason: Opiate Reversal Nitroglycerin (Nitrostat) 0.4 mg SL Q5MIN [facility] Ondansetron HCl (Zofran) 4 mg IV Q4HP PRN PRN Reason: Nausea And Vomiting Ondansetron HCl (Zofran Odt) 4 mg SL Q4-6HP PRN; Protocol PRN Reason: Nausea And Vomiting Pantoprazole Sodium (Protonix) 40 mg PO [facility] Last Admin: 07/24/20 22:13 Dose: 40 mg Documented by: Polyethylene Glycol (Miralax) 17 gm PO DAILYP PRN PRN Reason: Constipation Potassium Chloride (Klor-Con) 40 meq PO DAILYP PRN PRN Reason: K+ < 3.5 Senna (Senokot) 1 tab PO [facility] Last Admin: 07/24/20 22:14 Dose: Not Given Documented by: Senna/Docusate Sodium (Senna Plus Tablet) 1 tab PO [facility] Last Admin: 07/24/20 22:14 Dose: Not Given Documented by: Simvastatin (Zocor) 40 mg PO QHS [facility] Last Admin: 07/24/20 22:14 Dose: 40 mg Documented by: Sodium Biphosphate/Sodium Phosphate (Fleets Adult) 1 dose AK Q3-4DAYS PRN PRN Reason: Constipation Sodium Chloride (Saline Flush) 10 ml IV Q8 [facility] Last Admin: 07/25/20 04:05 Dose: 10 ml Documented by: Temazepam (Restoril) 15 mg PO [facility] PRN PRN Reason: Insomnia Throat Lozenges (Cepacol) 1 lozenge PO PRN PRN PRN Reason: Sore Throat Tramadol HCl (Ultram) 50 mg PO Q6HP PRN; Protocol PRN Reason: Pain A/P Narrative A/P Narrative: The patient has been educated regarding dressing care, Physical Therapy recommendations, home exercises, restrictions, and follow up appointments. The patient has had all necessary DME prescribed. The patient has remained relatively stable during their hospital course. Time Spent With Patient Time: Total time spent is greater than 50% in coordination of care (as documented) at patient's floor/unit and/or counseling patient: Total time spent with greater than 50% in coordination of care (as documented) at patient's floor/unit and/or counseling patient:: less than 15 minutes
[2020-07-25] MEDS: CARVEDILOL 3.125 MG TABLET PO SCH (08:19)
[2020-07-25] MEDS: ASPIRIN 81 MG TAB.CHEW PO SCH (08:19)
[2020-07-25] MEDS: ENOXAPARIN 40 MG/0.4 ML SYRINGE SQ SCH (08:19)
[2020-07-25] MEDS: MULTIVIT,THER IRON,CA,FA & MIN 1 TABLET PO SCH (08:19)
[2020-07-25 08:24] LABS: Eosinophils % (Manual) 4 % (0-7); Lymphocytes % 13 % (15-49); Monocytes % (Manual) 9 % (1-12); Platelet Estimate NORMAL (NORMAL); RBC Morphology NORMAL (NORMAL); Segmented Neutrophils % 74 % (38-78)
[2020-07-25] MEDS: DOCUSATE SODIUM 100 MG CAPSULE PO SCH (08:24)
--- NOTE | 2020-07-25 14:37 | Discharge Summary ---
Discharge Provider Provider Patient information: Note initiated : 07/25/20 at 2:33 pm Service Date, if different from initiated Date: [] Patient: Bryce Gandhi 85 y/o M admitted on 07/21/20 for right hip fracture. Chief Complaint: [] Date of admission: 07/21/20 02:15 Discharge date: 07/25/20 Primary care physician: [facility] Consults: 07/21/20 Consult to Physician [CONS] Stat Comment: Consulting Provider: Simone Montelongo Reason For Exam: Physician to Consult Discharge Meds Discharge Medications Home Medications carvedilol 3.125 mg PO BID 07/21/20 [History Confirmed 07/21/20 Last Taken 07/20 09:00] cholecalciferol (vitamin D3) 25 mcg PO QDAY 07/21/20 [History Confirmed 07/21/20 Last Taken 07/20/20 09:00] nitroglycerin 0.4 mg SUBLINGUAL Q5MIN 07/21/20 [History Confirmed 07/21/20 Last Taken Unknown] simvastatin [Zocor] 40 mg PO QHS 07/21/20 [History Confirmed 07/21/20 Last Taken 07/19/20 21:00] aspirin 81 mg PO BID 12 Days #24 tab 07/23/20 [Rx Last Taken Unknown] docusate sodium 100 mg PO BID #120 cap 07/23/20 [Rx Last Taken Unknown] hydrocodone-acetaminophen 1 - 2 tab PO Q4HP PRN #60 tab 07/23/20 [Rx Last Taken Unknown] COURSE Hospital Course Hospital course: 1. Right hip fracture- s/p right hip cemented leslie arthroplasty was performed by Dr. Amaya on 07/21/20. Postop pain management on opioids As per Dr. Amaya, "May shower with silver dressing in place. Do not submerge/soak incision. Keep clean and dry. If gets wet, OK to remove and replace new dry dressing. F/u with orthopedics in 2 weeks for staple removal/postoperative wound check. Avoid crossing your legs, sleep with the pillow between your legs. Avoid bending over to tie shoes, or leaning forward to get up from a deep chair--be mindful of the posterior hip precautions." 2. History of hypertension restarted Coreg 3. History of CAD/hyperlipidemia continue statin/aspirin 4. PVCs - Mag and K WNL. continue coreg. f/u with cardiology 5. Full code 6. Prophylaxis will be as per orthopedics 7. Fever on 07/22. Chest x-ray no acute change. Blood culture and urinalysis negative. fever resolved. May shower with silver dressing in place. Do not submerge/soak incision. Keep clean and dry. If gets wet, OK to remove and replace new dry dressing. F/u with orthopedics in 2 weeks for staple removal/postoperative wound check. Avoid crossing your legs, sleep with the pillow between your legs. Avoid bending over to tie shoes, or leaning forward to get up from a deep chair--be mindful of the posterior hip precautions. Mr. Gandhi is a 85 year old M who presents to the ER from [facility] following a fall that resulted in right hip fracture. Dr. Mckeon was consulted and requested patient to be transferred to [facility] for further management/operative intervention. I received a phone call from Dr. Turcios about patient's status and the need for transfer to [facility]. Patient accepted and arrived in the ER. Patient is fairly stable Patient denies lightheadedness dizziness. 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 He came home and sat on the stairs, he attributes fall getting off balance while he was getting off on the stairs and turning around. He denies chest pain, palpitation, lightheadedness, thunderclap headache, unilateral weakness or incontinence. Review of patient prior medical history includes hypertension/coronary disease/hyperlipidemia with a recent hospitalization or decompensations. He is a fairly active 85-year-old gentleman 07/22 Patient has mild pain from right fracture area. Denies fever, chills, nausea or vomiting. Right hip cemented leslie arthroplasty was performed by Dr. Amaya on 07/21/20. PT OT 07/23 Pt does not have any new complaints. The pain is controlled. Denies nausea, vomiting, fever, or chills. He was found to have frequent PVCs on monitor. Magnesium and potassium within normal limits Orthopedics cleared to discharge this patient 07/24 Patient does not have any complaints and feels fine. Denies fever or chills. Denies dysuria. he had a fever late yesterday afternoon and this afternoon. Chest x-ray no acute change Blood culture and urinalysis were ordered Physical therapy still recommended skilled rehab SNF/Rehab prior to DC home. 07/25 Patient does not have any complaints. Pain is controlled. Afebrile. All vital signs are stable. PT recommended SNF or rehab. [place], [place]ist, and release manager. Continue PT OT. Otherwise the patient to do more exercise as tolerated to prevent thrombotic events. Follow instructions from orthopedics for DVT prophylaxis. Call PCP for medical issues. Discharge diagnosis: Right hip fracture- s/p right hip cemented leslie arthroplasty Time Spent with Patient Time attestation: Total time spent providing and/or coordinating discharge services: EXAM Constitutional Vitals: Temp Pulse Resp BP Pulse Ox 97.9 F 71 20 106/58 99 07/25/20 12:00 07/25/20 12:00 07/25/20 12:00 07/25/20 12:00 07/25/20 12:00 Additional findings Additional findings: General - No acute distress Eyes - PERRLA, EOM intact ENT no rhinorrhea, no noticeable or palpable swelling, no redness or rash around throat or on face Neck supple, no JVD, no thyromegaly Respiratory: Lungs - CTA, no use of accessary muscles. Cardiovascular - RRR no m/r/g, GI - Normal bowel sounds, no distended, soft. Extremeties -Dressing on right hip dry Hemo/lymphatic/immune no lymphadenopathy Neurological Alert and oriented x 3, no focal neurological deficits. Psychiatry flat affect Discharge Data Data Completed and Pending Labs on day of discharge: Labs from last 24 hours 07/25/20 07/25/20 07/24/20 06:10 06:10 18:15 WBC 8.9 RBC 3.39 L Hgb 10.8 L Hct 33.0 L MCV 97.3 MCH 31.9 MCHC 32.7 RDW 13.1 Plt Count 226 MPV 9.5 Total Counted 100 Seg Neutrophils % 74 Band Neutrophils % Not Reportable Lymphocytes % 13 L Monocytes % (Manual) 9 Eosinophils % (Manual) 4 Platelet Estimate Normal RBC Morphology Normal Sodium 138 Potassium 4.6 Chloride 104 Carbon Dioxide 24 Anion Gap 10.0 BUN 27 H Creatinine 1.1 GFR Calculation 61 Glucose 99 Uric Acid 5.3 Calcium 8.9 Phosphorus 2.8 Magnesium 2.3 Total Bilirubin 0.3 Direct Bilirubin < 0.2 GGT 9 AST 22 ALT 7 Alkaline Phosphatase 86 Lactate Dehydrogenase 182 Total Protein 5.7 L Albumin 2.9 L Globulin 2.8 Albumin/Globulin Ratio 1.0 Triglycerides 121 Urine Color Yellow Urine Appearance Clear Urine pH 5.0 Ur Specific [place] 1.019 Urine Protein Neg Urine Glucose (UA) Negative Urine Ketones Neg Urine Occult Blood 0.03 A Urine Nitrate Neg Urine Bilirubin Neg Urine Urobilinogen 2.0 A Ur Leukocyte Esterase Neg Urine RBC 4 H Urine WBC 2 Ur Squamous Epith Cells < 1 Urine Bacteria 0 Urine Mucus Few Ur Culture Indicated? No Discharge Plan Patient/Caregiver Discharge Instructions Activity: as per physical therapy and increase activity as tolerated Diet: Regular Diet Instructions: Hydrocodone/Acetaminophen (By mouth), Laxative, Stool Softeners (By mouth) Prescriptions: New hydrocodone-acetaminophen 7.5-325 mg Tablet 1 - 2 tab PO Q4HP PRN (Reason: Per Pain Protocol) Qty: 60 RF: 0 docusate sodium 100 mg Capsule 100 mg PO BID Qty: 120 RF: 0 aspirin 81 mg Tablet,Chewable 81 mg PO BID 12 Days Qty: 24 RF: 0 Continued simvastatin [Zocor] 40 mg Tablet 40 mg PO QHS RF: 0 carvedilol 3.125 mg Tablet 3.125 mg PO BID RF: 0 nitroglycerin 0.4 mg tablet, sublingual 0.4 mg sublingual Q5MIN RF: 0 cholecalciferol (vitamin D3) 25 mcg (1,000 unit) Capsule 25 mcg PO QDAY RF: 0 Discontinued aspirin [Aspirin Low Dose] 81 mg Tablet,Delayed Release (Dr/Ec) 81 mg PO DAILY RF: 0 Other Ambulatory Orders: Physical Therapy at Discharge - [facility] (Routine) Location: None Selected Ordered By: Victor M Williamson Toilet Riser Discharge Order (ONCE) Location: None Selected Ordered By: Victor M Williamson Walker (ONCE) Location: None Selected Ordered By: Victor M Williamson Follow Up Plan Follow up with: Pancho Villar PA-C [Physician Payroll Examiner] - (2 week f/u for staple removal and postoperative wound check.) [facility] [facility] [Primary Care Provider] - Unknown [Outside] (Follow with PCP in 3 days, release manager within 1 week and orthopedics in 2 weeks.) Patient Disposition: Home, Self-Care Prognosis: Fair Rehab Potential: Good Overall status at discharge: patient is progressing back to baseline Discharge Orders: Discharge Order (Routine); Ordered 07/23/20 Ordered By: Victor M LOO VTE Deep Vein Thrombosis/Pulmonary Embolism Present on Admission: No
--- NOTE | 2020-07-31 13:19 | Discharge Summary ---
Discharge Provider Provider Patient information: Note initiated : 07/31/20 at 1:08 pm Service Date, if different from initiated Date: [] Patient: Bryce Gandhi 85 y/o M admitted on 07/21/20 for right hip fracture. Chief Complaint: [] Date of admission: 07/21/20 02:15 Primary care physician: [facility] Consults: 07/21/20 Consult to Physician [CONS] Stat Comment: Consulting Provider: Simone Montelongo Reason For Exam: Physician to Consult Discharge Meds Discharge Medications Home Medications carvedilol 3.125 mg PO BID 07/21/20 [History Confirmed 07/21/20 Last Taken 07/20/20 09:00] cholecalciferol (vitamin D3) 25 mcg PO QDAY 07/21/20 [History Confirmed 07/21/20 Last Taken 07/20/20 09:00] nitroglycerin 0.4 mg SUBLINGUAL Q5MIN 07/21/20 [History Confirmed 07/21/20 Last Taken Unknown] simvastatin [Zocor] 40 mg PO QHS 07/21/20 [History Confirmed 07/21/20 Last Taken 07/19/20 21:00] aspirin 81 mg PO BID 12 Days #24 tab 07/23/20 [Rx Last Taken Unknown] docusate sodium 100 mg PO BID #120 cap 07/23/20 [Rx Last Taken Unknown] hydrocodone-acetaminophen 1 - 2 tab PO Q4HP PRN #60 tab 07/23/20 [Rx Last Taken Unknown] COURSE Time Spent with Patient Time attestation: Total time spent providing and/or coordinating discharge services: EXAM Constitutional Vitals: Temp Pulse Resp BP Pulse Ox 98.9 F 76 18 139/71 97 07/25/20 15:24 07/25/20 15:24 07/25/20 15:24 07/25/20 15:24 07/25/20 15:24 Discharge Plan Patient/Caregiver Discharge Instructions Activity: as per physical therapy and increase activity as tolerated Diet: Regular Diet Instructions: Hydrocodone/Acetaminophen (By mouth), Aspirin (By mouth), Laxative, Stool Softeners (By mouth) Activity Restrictions/Additional Instructions: Resume your regular diet. Up to the chair, sitting at 90 degrees, for every meal, to prevent aspiration. Do the exercises at home that physical therapy gave you. Weight bearing as tolerated. Activity as tolerated. Use your ice packs as directed, on for 20 minutes at a time throughout the day. This and elevation will help with pain and swelling. Wear comfortable clothing for your physical therapy. Consider premedicating with pain medication 45 minutes prior to physical therapy. You have the Silver dressing covering your surgical incision. Leave in place for 7 days then remove. Remove by Friday, 07/28. If dressing becomes soiled (turns black), remove and use gauze 4x4 dressing and antimicrobial silver ointment ([id number]) and change daily. You may shower. The silver dressing can get wet. Do not use soaps, creams, or lotions over the dressing. Pat dry. No bathing or soaking in hot tub until released by surgeon. You will be taking Aspirin 81 mg 2 x daily for 12 days to prevent blood clots. To avoid constipation while taking any narcotic pain medication, take an over the counter stool softener/laxative. If you have any questions or concerns call your orthopedic surgeon before going to the emergency room. [facility] has an on- call physician 24 hours per day/7 days per week and can be reached at [phone]. Call for fevers above 100.5 or pain not controlled by medication. Prescriptions: New hydrocodone-acetaminophen 7.5-325 mg Tablet 1 - 2 tab PO Q4HP PRN (Reason: Per Pain Protocol) Qty: 60 RF: 0 docusate sodium 100 mg Capsule 100 mg PO BID Qty: 120 RF: 0 aspirin 81 mg Tablet,Chewable 81 mg PO BID 12 Days Qty: 24 RF: 0 Continued simvastatin [Zocor] 40 mg Tablet 40 mg PO QHS RF: 0 carvedilol 3.125 mg Tablet 3.125 mg PO BID RF: 0 nitroglycerin 0.4 mg tablet, sublingual 0.4 mg sublingual Q5MIN RF: 0 cholecalciferol (vitamin D3) 25 mcg (1,000 unit) Capsule 25 mcg PO QDAY RF: 0 Discontinued aspirin [Aspirin Low Dose] 81 mg Tablet,Delayed Release (Dr/Ec) 81 mg PO DAILY RF: 0 Other Ambulatory Orders: OT Discharge Order (Routine) Location: None Selected Ordered By: Rios Trinidad Physical Therapy at Discharge - [facility] (Routine) Location: None Selected Ordered By: Victor M Williamson Toilet Riser Discharge Order (ONCE) Location: None Selected Ordered By: Victor M Williamson Walker (ONCE) Location: None Selected Ordered By: Victor M Williamson Follow Up Plan Follow up with: Unknown [Outside] (Follow with PCP in 3 days, first press operator within 1 week and orthopedics in 2 weeks.) Pancho Villar PA-C [Physician Mounted Police] - (2 week f/u for staple removal and postoperative wound check.) [facility] Admin [Primary Care Provider] - Patient Disposition: [facility] Swing Bed Prognosis: Fair Rehab Potential: Good Overall status at discharge: patient is progressing back to baseline Discharge Date/Time: 07/25/20 17:15 Discharge Location: [facility] Discharge Orders: Discharge Order (Routine); Ordered 07/23/20 Ordered By: Victor M Williamson Discharge Comment: Transferred by Ambulance Personnel QUALITY VTE Deep Vein Thrombosis/Pulmonary Embolism Present on Admission: No
--- NOTE | 2020-07-31 13:21 | Discharge Summary ---
Discharge Provider Provider Patient information: Note initiated : 07/31/20 at 1:19 pm Service Date, if different from initiated Date: [] Patient: Bryce Gandhi 85 y/o M admitted on 07/21/20 for right hip fracture. Chief Complaint: [] Date of admission: 07/21/20 02:15 Primary care physician: [facility] Consults: 07/21/20 Consult to Physician [CONS] Stat Comment: Consulting Provider: Simone Montelongo Reason For Exam: Physician to Consult Discharge Meds Discharge Medications Home Medications carvedilol 3.125 mg PO BID 07/21/20 [History Confirmed 07/21/20 Last Taken 07/20/20 09:00] cholecalciferol (vitamin D3) 25 mcg PO QDAY 07/21/20 [History Confirmed 07/21/20 Last Taken 07/20/20 09:00] nitroglycerin 0.4 mg SUBLINGUAL Q5MIN 07/21/20 [History Confirmed 07/21/20 Last Taken Unknown] simvastatin [Zocor] 40 mg PO QHS 07/21/20 [History Confirmed 07/21/20 Last Taken 07/19/20 21:00] aspirin 81 mg PO BID 12 Days #24 tab 07/23/20 [Rx Last Taken Unknown] docusate sodium 100 mg PO BID #120 cap 07/23/20 [Rx Last Taken Unknown] hydrocodone-acetaminophen 1 - 2 tab PO Q4HP PRN #60 tab 07/23/20 [Rx Last Taken Unknown] COURSE Time Spent with Patient Time attestation: Total time spent providing and/or coordinating discharge services: EXAM Constitutional Vitals: Temp Pulse Resp BP Pulse Ox 98.9 F 76 18 139/71 97 07/25/20 15:24 07/25/20 15:24 07/25/20 15:24 07/25/20 15:24 07/25/20 15:24 Discharge Plan Patient/Caregiver Discharge Instructions Activity: as per physical therapy and increase activity as tolerated Diet: Regular Diet Instructions: Hydrocodone/Acetaminophen (By mouth), Aspirin (By mouth), Laxative, Stool Softeners (By mouth) Activity Restrictions/Additional Instructions: Resume your regular diet. Up to the chair, sitting at 90 degrees, for every meal, to prevent aspiration. Do the exercises at home that physical therapy gave you. Weight bearing as tolerated. Activity as tolerated. Use your ice packs as directed, on for 20 minutes at a time throughout the day. This and elevation will help with pain and swelling. Wear comfortable clothing for your physical therapy. Consider premedicating with pain medication 45 minutes prior to physical therapy. You have the Silver dressing covering your surgical incision. Leave in place for 7 days then remove. Remove by Friday, 07/28. If dressing becomes soiled (turns black), remove and use gauze 4x4 dressing and antimicrobial silver ointment ([id number]) and change daily. You may shower. The silver dressing can get wet. Do not use soaps, creams, or lotions over the dressing. Pat dry. No bathing or soaking in hot tub until released by surgeon. You will be taking Aspirin 81 mg 2 x daily for 12 days to prevent blood clots. To avoid constipation while taking any narcotic pain medication, take an over the counter stool softener/laxative. If you have any questions or concerns call your orthopedic surgeon before going to the emergency room. [facility] has an on- call physician 24 hours per day/7 days per week and can be reached at [phone]. Call for fevers above 100.5 or pain not controlled by medication. Prescriptions: New hydrocodone-acetaminophen 7.5-325 mg Tablet 1 - 2 tab PO Q4HP PRN (Reason: Per Pain Protocol) Qty: 60 RF: 0 docusate sodium 100 mg Capsule 100 mg PO BID Qty: 120 RF: 0 aspirin 81 mg Tablet,Chewable 81 mg PO BID 12 Days Qty: 24 RF: 0 Continued simvastatin [Zocor] 40 mg Tablet 40 mg PO QHS RF: 0 carvedilol 3.125 mg Tablet 3.125 mg PO BID RF: 0 nitroglycerin 0.4 mg tablet, sublingual 0.4 mg sublingual Q5MIN RF: 0 cholecalciferol (vitamin D3) 25 mcg (1,000 unit) Capsule 25 mcg PO QDAY RF: 0 Discontinued aspirin [Aspirin Low Dose] 81 mg Tablet,Delayed Release (Dr/Ec) 81 mg PO DAILY RF: 0 Other Ambulatory Orders: OT Discharge Order (Routine) Location: None Selected Ordered By: Rios Trinidad [facility] at Discharge - [place] (Routine) Location: None Selected Ordered By: Victor M Williamson Toilet Riser Discharge Order (ONCE) Location: None Selected Ordered By: Victor M Williamson Walker (ONCE) Location: None Selected Ordered By: Victor M Williamson Follow Up Plan Follow up with: Unknown [Outside] (Follow with PCP in 3 days, math and physics instructor within 1 week and orthopedics in 2 weeks.) Pancho Villar PA-C [Physician Pharmacy Retail Support Specialist] - (2 week f/u for staple removal and postoperative wound check.) [facility] [facility] [Primary Care Provider] - Patient Disposition: [facility] Swing Bed Prognosis: Fair Rehab Potential: Good Overall status at discharge: patient is progressing back to baseline Discharge Date/Time: 07/25/20 17:15 Discharge Location: [facility] Discharge Orders: Discharge Order (Routine); Ordered 07/23/20 Ordered By: Victor M Williamson Discharge Comment: Transferred by Ambulance Personnel QUALITY VTE Deep Vein Thrombosis/Pulmonary Embolism Present on Admission: No
== END 2020-07-25 17:15 | disposition other institution (70) | DRG 470 ==
LOC: ED 23:56 → MEDSUR 07-21 02:15
PROVIDERS: ADMIT Orthopaedic Surgery; ATTEND Internal Medicine